=== PATIENT | male | born 1970 | race American Indian/Alaskan Native ===

== ENCOUNTER 2018-09-26 14:44 | Emergency (ER) | payer OTHER ==
[2018-09-26] MEDS ORDERED: Sodium Chloride 0.9% 10 ML Syringe FLUSH PRN (14:45)
[2018-09-26] MEDS ORDERED: Aspirin 81 MG Tab.Chew PO ONE (14:45)
[2018-09-26] MEDS ORDERED: Nitroglycerin 0.4 MG Tab.SL SL PRN (14:45)
--- NOTE | 2018-09-26 14:45 | EDM.PDOC ---
ED HPI GENERAL MEDICAL PROBLEM - General Chief Complaint: Chest Pain Stated Complaint: [facility] CHEST PAIN Time Seen by Provider: 09/26/18 14:45 Source of Information: Reports: Patient, EMS, Old Records, Provider (Dr. Lakhani) , RN, RN Notes Reviewed History Limitations: Reports: No Limitations - History of Present Illness INITIAL COMMENTS - FREE TEXT/NARRATIVE: Pt sent from [facility] by [facility] by Dr. Lakhani for evaluation of chest pain. Pt states he was seen in ER in 2017 for a similar pain and was diagnosed with GERD. Today he presented as a walk in to the clinic with c/o chest pain. He describes a sharp epigastric burning pain that radiates up the midline of the chest to into the throat. Pt denies SOB, palpitations, syncope, cough, or edema. Duration: Week(s): (3), Recurring Location: Reports: Chest, Abdomen Quality: Reports: Burning, Sharp Severity: Moderate Improves with: Reports: None Worsens with: Reports: None Associated Symptoms: Reports: No Other Symptoms - Related Data Allergies Allergy/AdvReac Type Severity Reaction Status Date / Time Penicillins Allergy Swelling Verified 05/29/15 00:25 Home Meds: Home Meds . [No Known Home Meds] 09/26/18 [History] Past Medical History - Past Health History Medical/Surgical History: Denies Medical/Surgical History Social & Family History - Family History Family Medical History: Noncontributory - Caffeine Use Caffeine Use: Reports: Coffee, Energy Drinks, Soda, Tea ED ROS GENERAL - Review of Systems Review Of Systems: ROS reveals no pertinent complaints other than HPI. ED EXAM, GENERAL - Physical Exam Exam: See Below Exam Limited By: No Limitations General Appearance: Alert, WD/WN, No Apparent Distress Throat/Mouth: Normal Inspection, Normal Lips, Normal Voice, No Airway Compromise Head: Atraumatic, Normocephalic Neck: Normal Inspection, Supple, Non-Tender, Full Range of Motion Respiratory/Chest: No Respiratory Distress, Lungs Clear, Normal Breath Sounds, No Accessory Muscle Use, Chest Non-Tender Cardiovascular: Regular Rate, Rhythm, No Edema GI/Abdominal: Normal Bowel Sounds, Soft, Non-Tender, No Distention, No Abnormal Bruit Back Exam: Normal Inspection Extremities: Normal Inspection, Normal Range of Motion, Non-Tender, Normal Capillary Refill, No Pedal Edema Neurological: Alert, Oriented, CN II-XII Intact, Normal Cognition, Normal Gait, No Motor/Sensory Deficits Psychiatric: Normal Affect, Normal Mood Skin Exam: Warm, Dry, Intact, Normal Color, No Rash EKG INTERPRETATION EKG Date: 09/26/18 Time: 15:28 Rhythm: Other (sinus rhythm) Rate (Beats/Min): 76 [place]: Normal P-Wave: Absent (probable left atrial enlargement) QRS: Other (baseline wander in Lead II and AVR.) ST-T: Normal QT: Normal Comparison: No Change Course - Vital Signs Last Recorded V/S: See RN entry for VS, reviewed by me. - Orders/Labs/Meds Orders: Active Orders 24 hr Category Date Time Status EKG 12 Lead [EKG Documentation Completion] [] STAT Care 09/26/18 14:45 Active Peripheral IV Care [] . DIRECTED Care 09/26/18 14:46 Active Nitroglycerin [Nitrostat] Med 09/26/18 14:45 Active 0.4 mg SL Q5M PRN Sodium Chloride 0.9% [Saline Flush] Med 09/26/18 14:45 Active 10 ml FLUSH ASDIRECTED PRN Peripheral IV Insertion Adult [OM.PC] Stat Oth 09/26/18 14:45 Ordered Medication Orders Nitroglycerin (Nitrostat) 0.4 mg SL Q5M PRN PRN Reason: Chest Pain Sodium Chloride (Saline Flush) 10 ml FLUSH ASDIRECTED PRN PRN Reason: Keep Vein Open Labs: Laboratory Tests 09/26/18 09/26/18 09/26/18 Range/Units 15:07 15:07 15:07 WBC 7.3 (5.0-10.0) 10^3/uL RBC 4.37 L (4.6-6.2) 10^6/uL Hgb 14.7 D (14.0-18.0) g/dL Hct 41.6 (40.0-54.0) % MCV 95.2 D (80-100) fL MCH 33.6 (27.0-34.0) pg MCHC 35.3 H (33.0-35.0) g/dL Plt Count 131 L (150-450) 10^3/uL Neut % (Auto) 55.6 (42.2-75.2) % Lymph % (Auto) 30.0 (20.5-50.1) % [place] % (Auto) 8.7 H (2-8) % Eos % (Auto) 4.9 H (1.0-3.0) % Baso % (Auto) 0.8 (0.0-1.0) % D-Dimer, Quantitative 290 (0-400) ng/mL Sodium 131 L (135-145) mmol/L Potassium 3.7 (3.6-5.0) mmol/L Chloride 99 L (101-111) mmol/L Carbon Dioxide 22.0 (21.0-31.0) mmol/L Anion Gap 13.7 BUN 13 (7-18) mg/dL Creatinine 0.8 (0.6-1.3) mg/dL Est Cr Clr Drug Dosing TNP Estimated GFR (MDRD) > 60 BUN/Creatinine Ratio 16.25 Glucose 133 H (74-105) mg/dL Calcium 9.6 (8.4-10.2) mg/dl Total Bilirubin 0.8 (0.2-1.0) mg/dL AST 49 H (10-42) IU/L ALT 51 (10-60) IU/L Alkaline Phosphatase 78 (42-121) IU/L Troponin I < 0.02 (0.00-0.02) ng/ml Total Protein 7.7 (6.7-8.2) g/dl Albumin 4.2 (3.2-5.5) g/dl Globulin 3.5 Albumin/Globulin Ratio 1.20 Lipase 52 H (22-51) U/L Ethyl Alcohol < 5 mg/dL Meds: Medications Generic Name Dose Route Start Last Admin Trade Name Freq PRN Reason Stop Dose Admin Nitroglycerin 0.4 mg 09/26/18 14:45 Nitrostat SL Q5M PRN Chest Pain Sodium Chloride 10 ml 09/26/18 14:45 Saline Flush FLUSH ASDIRECTED PRN Keep Vein Open Discontinued Medications Generic Name Dose Route Start Last Admin Trade Name Freq PRN Reason Stop Dose Admin Aspirin 324 mg 09/26/18 14:45 Aspirin PO 09/26/18 14:46 ONETIME ONE Pantoprazole Sodium 40 mg 09/26/18 15:05 Protonix Iv IVPUSH 09/26/18 15:06 ONETIME ONE Sucralfate 1 gm 09/26/18 15:05 Carafate PO 09/26/18 15:06 ONETIME ONE - Radiology Interpretation Free Text/Narrative:: CXR: no acute process. Departure - Departure Time of Disposition: 15:48 Disposition: Home, Self-Care 01 Condition: Good Clinical Impression: Non-cardiac chest pain, GERD with esophagitis Instructions: Esophagitis, Food Choices for Gastroesophageal Reflux Disease, Adult, [id number] Forms: ED Department Discharge Additional Instructions: Rx: Omeprazole 20mg Follow up in clinic next week for recheck. - My Orders Last 24 Hours: My Active Orders 09/26/18 14:45 EKG 12 Lead [EKG Documentation Completion] [RC] STAT Nitroglycerin [Nitrostat] 0.4 mg SL Q5M PRN Sodium Chloride 0.9% [Saline Flush] 10 ml FLUSH ASDIRECTED PRN Peripheral IV Insertion Adult [OM.PC] Stat 09/26/18 14:46 Peripheral IV Care [RC] . DIRECTED - Assessment/Plan Last 24 Hours: My Active Orders 09/26/18 14:45 EKG 12 Lead [EKG Documentation Completion] [RC] STAT Nitroglycerin [Nitrostat] 0.4 mg SL Q5M PRN Sodium Chloride 0.9% [Saline Flush] 10 ml FLUSH ASDIRECTED PRN Peripheral IV Insertion Adult [OM.PC] Stat 09/26/18 14:46 Peripheral IV Care [RC] . DIRECTED
[2018-09-26] MEDS ORDERED: Pantoprazole 40 MG Vial IVPUSH ONE (15:05)
[2018-09-26] MEDS ORDERED: Sucralfate 1 GM Tab PO ONE (15:05)
--- NOTE | 2018-09-26 15:35 | CR ---
Clinical history: 48-year-old male chest pain. "No rib fractures or acute pulmonary disease" reported on last exam August 2013. Interpretation: Upright AP portable chest film unremarkable. External monitor worker leads but normal cardiac silhouette without new cephalization of flow, signs of alveolar edema or dependent pleural fluid accumulation (effusion). Subtle peribronchial "cuffing" but no new focal lobar infiltrate or atelectasis. No lung mass or hilar lymphadenopathy.
[2018-09-26 15:36] LABS: ANION GAP 13.7; CHLORIDE,CL 99 mmol/L (101-111); SODIUM,NA 131 mmol/L (135-145)
[2018-09-26 16:12] VITALS: BP 151/84
== END 2018-09-26 16:20 | disposition home or self-care (01) ==
LOC: DL.ED 14:44
DX: K21.0 Gastro-esophageal reflux disease with esophagitis (principal); Z88.0 Allergy status to penicillin
CPT/HCPCS: 36415; 71045; 80053; 83690; 84484; 85025; 85379; 93005; 96374; 99284; A9270; C9113; G0480

== ENCOUNTER 2018-10-07 11:12 | Emergency (ER) | payer OTHER, MEDICAID ==
[2018-10-07 11:20] VITALS: BP 147/79
--- NOTE | 2018-10-07 11:58 | CR ---
Clinical history: 48-year-old male complaining of chest pain Interpretation: Negative exam. No acute new cardiopulmonary abnormality identified in the interval since 26 September 2018 or earlier 14 September 2013 films. Upright AP portable chest film confirms normal cardiac silhouette without cephalization of vascular flow, new signs of alveolar edema or dependent pleural fluid accumulation. No new lung mass, hilar lymphadenopathy or focal lobar pneumonia. No atelectasis/collapse. No pneumothorax.
[2018-10-07 12:02] LABS: ANION GAP 13.8; CHLORIDE,CL 95 mmol/L (101-111); SODIUM,NA 129 mmol/L (135-145)
--- NOTE | 2018-10-07 12:29 | EDM.PDOC ---
Scribed by Shari Rascon 10/07/18 [id number] for Mary Ann Velásquez NP ED HPI GENERAL MEDICAL PROBLEM - General Chief Complaint: Respiratory Problem Stated Complaint: CHEST HURTS,BAD COLD Time Seen by Provider: 10/07/18 11:23 Source of Information: Reports: Patient, RN, RN Notes Reviewed History Limitations: Reports: No Limitations - History of Present Illness INITIAL COMMENTS - FREE TEXT/NARRATIVE: Patient presents tp ER with complaint of chest pain, cold symptoms beginning a few days ago when out in the cold air. He took Advil this a.m. which did help. He has a runny nose, sinus congestion, fever, chills, diarrhea, non-productive cough, shortness of breath and chest pain. No nausea or vomiting. Onset: Gradual Duration: Getting Worse Location: Reports: Chest Quality: Reports: Ache Severity: Moderate Improves with: Reports: None Worsens with: Reports: None Associated Symptoms: Reports: No Other Symptoms Middle Chest Pain Score (Numeric/FACES): 10 - Related Data Allergies Allergy/AdvReac Type Severity Reaction Status Date / Time Penicillins Allergy Swelling Verified 10/07/18 11:20 Home Meds: Home Meds . [No Known Home Meds] 09/26/18 [History] Past Medical History - Past Health History Medical/Surgical History: Denies Medical/Surgical History Social & Family History - Family History Family Medical History: Noncontributory - Tobacco Use Smoking Status *Q: Former Smoker Used Tobacco, but Quit: Yes Month/Year Tobacco Last Used: 2018 - Caffeine Use Caffeine Use: Reports: Coffee, Energy Drinks, Soda, Tea - Recreational Drug Use Recreational Drug Use: No ED ROS GENERAL - Review of Systems Review Of Systems: ROS reveals no pertinent complaints other than HPI. ED EXAM, GENERAL - Physical Exam Exam: See Below Exam Limited By: No Limitations General Appearance: Alert, WD/WN, No Apparent Distress Eye Exam: Bilateral Eye: EOMI, Normal Inspection, PERRL Ears: Normal External Exam, Normal Canal, Hearing Grossly Normal, Normal TMs Nose: Other (nose deviated to the right) Throat/Mouth: Normal Inspection, Normal Lips, Normal Teeth, Normal Gums, Normal Oropharynx, Normal Voice, No Airway Compromise Head: Atraumatic, Normocephalic Respiratory/Chest: Lungs Clear, Decreased Breath Sounds Cardiovascular: Normal Peripheral Pulses, Regular Rate, Rhythm, No Edema, No Gallop, No JVD, No Murmur, No Rub GI/Abdominal: Normal Bowel Sounds, Soft, Non-Tender, No Organomegaly, No Distention, No Abnormal Bruit, No Mass (Male) Exam: Deferred Rectal (Males) Exam: Deferred Back Exam: Normal Inspection, Full Range of Motion, NT Extremities: Normal Inspection, Normal Range of Motion, Non-Tender, Normal Capillary Refill, No Pedal Edema Neurological: Alert, Oriented, CN II-XII Intact, Normal Cognition, Normal Gait, Normal Reflexes, No Motor/Sensory Deficits Psychiatric: Normal Affect, Normal Mood Skin Exam: Warm, Dry, Intact, Normal Color, No Rash Lymphatic: No Adenopathy EKG INTERPRETATION EKG Date: 10/07/18 Time: 11:31 Rhythm: Other (sinus rhythm) Rate (Beats/Min): 75 [place]: Normal P-Wave: Present QRS: Normal ST-T: Normal QT: Normal Comparison: No Change Course - Vital Signs Last Recorded V/S: Last Vital Signs Temp 98.5 F 10/07/18 11:18 Pulse 72 10/07/18 11:18 Resp 16 10/07/18 11:18 BP 147/79 H 10/07/18 11:18 Pulse Ox 99 10/07/18 11:18 - Orders/Labs/Meds Orders: Active Orders 24 hr Category Date Time Status EKG Documentation Completion [RC] STAT Care 10/07/18 11:29 Active Labs: Laboratory Tests 10/07/18 10/07/18 Range/Units 11:36 11:36 WBC 8.4 (5.0-10.0) 10^3/uL RBC 4.16 L (4.6-6.2) 10^6/uL Hgb 13.9 L (14.0-18.0) g/dL Hct 40.2 (40.0-54.0) % MCV 96.6 (80-100) fL MCH 33.4 (27.0-34.0) pg MCHC 34.6 (33.0-35.0) g/dL Plt Count 111 L (150-450) 10^3/uL Neut % (Auto) 70.3 (42.2-75.2) % Lymph % (Auto) 15.6 L (20.5-50.1) % [place] % (Auto) 10.8 H (2-8) % Eos % (Auto) 2.9 (1.0-3.0) % Baso % (Auto) 0.4 (0.0-1.0) % Sodium 129 L (135-145) mmol/L Potassium 3.8 (3.6-5.0) mmol/L Chloride 95 L (101-111) mmol/L Carbon Dioxide 24.0 (21.0-31.0) mmol/L Anion Gap 13.8 BUN 9 (7-18) mg/dL Creatinine 0.8 (0.6-1.3) mg/dL Est Cr Clr Drug Dosing 112.30 mL/min Estimated GFR (MDRD) > 60 BUN/Creatinine Ratio 11.25 Glucose 209 H (74-105) mg/dL Calcium 9.0 (8.4-10.2) mg/dl Total Bilirubin 0.9 (0.2-1.0) mg/dL AST 38 (10-42) IU/L ALT 43 (10-60) IU/L Alkaline Phosphatase 70 (42-121) IU/L Troponin I < 0.02 (0.00-0.02) ng/ml Total Protein 7.5 (6.7-8.2) g/dl Albumin 3.8 (3.2-5.5) g/dl Globulin 3.7 Albumin/Globulin Ratio 1.03 - Radiology Interpretation Free Text/Narrative:: Chest xray: No acute findings See rad report Departure - Departure Time of Disposition: 12:27 Disposition: Home, Self-Care 01 Condition: Fair Clinical Impression: Bronchitis - Discharge Information *PRESCRIPTION DRUG MONITORING PROGRAM REVIEWED*: No *COPY OF PRESCRIPTION DRUG MONITORING REPORT IN PATIENT JETHRO: No Instructions: Acute Bronchitis, Adult, [id number] Forms: ED Department Discharge Additional Instructions: RX: Prednisone, albuterol inhaler Follow up with your primary care facility May use Tylenol and/or Ibuprofen as directed for pain/fever - My Orders Last 24 Hours: My Active Orders 10/07/18 11:29 EKG Documentation Completion [RC] STAT - Assessment/Plan Last 24 Hours: My Active Orders 10/07/18 11:29 EKG Documentation Completion [RC] STAT I have read and agree with the documentation that has been completed regarding this visit. By signing this record, I attest that the documentation was completed in my physical presence and is an accurate record of the encounter.
== END 2018-10-07 12:40 | disposition home or self-care (01) ==
LOC: DL.ED 11:12
DX: J40 Bronchitis, not specified as acute or chronic (principal); Z88.0 Allergy status to penicillin; Z87.891 Personal history of nicotine dependence
CPT/HCPCS: 36415; 71045; 80053; 84484; 85025; 93005; 99285

== ENCOUNTER 2018-10-09 09:26 | Observation (INO) | payer MEDICAID, OTHER ==
--- NOTE | 2018-10-09 10:03 | CR ---
Clinical history: 48-year-old male complaining of shortness of breath. Interpretation: No acute new cardiopulmonary abnormality since recent film 07 October 2018 or earlier chest x-ray 26 September 2018. Prominent costochondral cartilage. External shelter monitor leads. Left-sided aortic arch. Normal cardiac silhouette without cephalization of vascular flow, alveolar edema or dependent pleural effusion. No lung mass, hilar lymphadenopathy or new focal lobar consolidation (infiltrate/atelectasis). No pneumothorax. CONCLUSION: No acute or new cardiopulmonary abnormality.
[2018-10-09 10:07] LABS: ANION GAP 17.5; CHLORIDE,CL 94 mmol/L (101-111); SODIUM,NA 127 mmol/L (135-145)
[2018-10-09] MEDS ORDERED: Sodium Chloride 0.9% 1,000 ML IV SCH (10:30)
--- NOTE | 2018-10-09 10:37 | EDM.PDOC ---
ED HPI GENERAL MEDICAL PROBLEM - General Chief Complaint: Respiratory Problem Stated Complaint: SOB-AMBULANCE Time Seen by Provider: 10/09/18 09:45 Source of Information: Reports: Patient History Limitations: Reports: No Limitations - History of Present Illness INITIAL COMMENTS - FREE TEXT/NARRATIVE: This 48 yo male patient reports to the ED by [facility] due to increased shortness of breath and chest tightness. The patient was seen in the ED 2 days ago with similar symptoms, diagnosed with bronchitis, given scripts for prednisone and albuterol. The patient reports he has been taking the prednisone, but did not fill the albuterol. Onset: Gradual Duration: Day(s):, Constant, Getting Worse Location: Reports: Chest Quality: Reports: Other Severity: Moderate Improves with: Reports: None Worsens with: Reports: None Associated Symptoms: Reports: Shortness of Breath - Related Data Allergies Allergy/AdvReac Type Severity Reaction Status Date / Time Penicillins Allergy Swelling Verified 10/07/18 11:20 Home Meds: Home Meds predniSONE [Prednisone] 60 mg PO DAILY 10/09/18 [History] Past Medical History - Past Health History Medical/Surgical History: Denies Medical/Surgical History Social & Family History - Family History Family Medical History: Noncontributory - Tobacco Use Smoking Status *Q: Former Smoker Used Tobacco, but Quit: Yes Month/Year Tobacco Last Used: 2017 - Caffeine Use Caffeine Use: Reports: None - Recreational Drug Use Recreational Drug Use: No ED ROS GENERAL - Review of Systems Review Of Systems: ROS reveals no pertinent complaints other than HPI. ED EXAM, GENERAL - Physical Exam Exam: See Below Exam Limited By: No Limitations General Appearance: Alert, WD/WN, Mild Distress Eye Exam: Bilateral Eye: EOMI, Normal Inspection, PERRL Ears: Normal External Exam, Normal Canal, Hearing Grossly Normal, Normal TMs Nose: Normal Inspection, Normal Mucosa, No Blood Throat/Mouth: Normal Inspection, Normal Lips, Normal Teeth, Normal Gums, Normal Oropharynx, Normal Voice, No Airway Compromise Head: Atraumatic, Normocephalic Neck: Normal Inspection, Supple, Non-Tender, Full Range of Motion Respiratory/Chest: No Respiratory Distress, Lungs Clear, Normal Breath Sounds, No Accessory Muscle Use, Chest Non-Tender Cardiovascular: Normal Peripheral Pulses, Regular Rate, Rhythm, No Edema, No Gallop, No JVD, No Murmur, No Rub GI/Abdominal: Normal Bowel Sounds, Soft, Non-Tender, No Organomegaly, No Distention, No Abnormal Bruit, No Mass (Male) Exam: Deferred Rectal (Males) Exam: Deferred Back Exam: Normal Inspection, Full Range of Motion, NT Extremities: Normal Inspection, Normal Range of Motion, Non-Tender, Normal Capillary Refill, No Pedal Edema Neurological: Alert, Oriented, CN II-XII Intact, Normal Cognition, Normal Gait, Normal Reflexes, No Motor/Sensory Deficits Psychiatric: Normal Affect, Normal Mood Skin Exam: Warm, Dry, Intact, Normal Color, No Rash Lymphatic: No Adenopathy Course - Vital Signs Last Recorded V/S: Last Vital Signs Temp 37.4 C 10/09/18 09:31 Pulse 81 10/09/18 09:31 Resp 14 10/09/18 09:31 BP 139/85 10/09/18 09:31 Pulse Ox 96 10/09/18 09:31 - Orders/Labs/Meds Orders: Active Orders 24 hr Category Date Time Status EKG Documentation Completion [RC] URGENT Care 10/09/18 09:24 Active CULTURE BLOOD [BC] Stat Lab 10/09/18 09:37 Received Sodium Chloride 0.9% [Normal Saline] 1,000 ml Med 10/09/18 10:30 Active IV ASDIRECTED Medication Orders Sodium Chloride (Normal Saline) 1,000 mls @ 100 mls/hr IV ASDIRECTED TERESA Labs: Laboratory Tests 10/09/18 10/09/18 10/09/18 Range/Units 09:37 09:37 09:37 WBC 7.5 (5.0-10.0) 10^3/uL RBC 4.42 L (4.6-6.2) 10^6/uL Hgb 14.5 (14.0-18.0) g/dL Hct 41.6 (40.0-54.0) % MCV 94.1 (80-100) fL MCH 32.8 (27.0-34.0) pg MCHC 34.9 (33.0-35.0) g/dL Plt Count 126 L (150-450) 10^3/uL Neut % (Auto) 67.4 (42.2-75.2) % Lymph % (Auto) 23.6 (20.5-50.1) % [place] % (Auto) 7.2 (2-8) % Eos % (Auto) 1.5 (1.0-3.0) % Baso % (Auto) 0.3 (0.0-1.0) % Sodium 127 L (135-145) mmol/L Potassium 3.5 L (3.6-5.0) mmol/L Chloride 94 L (101-111) mmol/L Carbon Dioxide 19.0 L (21.0-31.0) mmol/L Anion Gap 17.5 BUN 14 (7-18) mg/dL Creatinine 0.8 (0.6-1.3) mg/dL Est Cr Clr Drug Dosing 112.30 mL/min Estimated GFR (MDRD) > 60 BUN/Creatinine Ratio 17.50 Glucose 205 H (74-105) mg/dL Lactic Acid 1.8 (0.5-2.2) mmol/L Calcium 9.1 (8.4-10.2) mg/dl Total Bilirubin 1.1 H (0.2-1.0) mg/dL AST 58 H (10-42) IU/L ALT 49 (10-60) IU/L Alkaline Phosphatase 63 (42-121) IU/L Troponin I < 0.02 (0.00-0.02) ng/ml Total Protein 7.9 (6.7-8.2) g/dl Albumin 4.1 (3.2-5.5) g/dl Globulin 3.8 Albumin/Globulin Ratio 1.08 Meds: Medications Generic Name Dose Route Start Last Admin Trade Name Freq PRN Reason Stop Dose Admin Sodium Chloride 1,000 mls @ 100 mls/hr 10/09/18 10:30 Normal Saline IV ASDIRECTED [facility] Departure - Departure Time of Disposition: 10:35 Disposition: Admitted As Inpatient 66 Condition: Fair Clinical Impression: Bronchitis, Hyponatremia, Shortness of breath - Discharge Information *PRESCRIPTION DRUG MONITORING PROGRAM REVIEWED*: Not Applicable *COPY OF PRESCRIPTION DRUG MONITORING REPORT IN PATIENT JETHRO: Not Applicable Care Plan Goals: Discussed the history, examination and lab results with Dr. Mckeon. Dr. Mckeon accepted the patient for continued evaluation and further management as an inpatient at [facility] in [place]. - My Orders Last 24 Hours: My Active Orders 10/09/18 09:24 EKG Documentation Completion [RC] URGENT 10/09/18 09:37 CULTURE BLOOD [BC] Stat 10/09/18 10:30 Sodium Chloride 0.9% [Normal Saline] 1,000 ml IV ASDIRECTED - Assessment/Plan Last 24 Hours: My Active Orders 10/09/18 09:24 EKG Documentation Completion [RC] URGENT 10/09/18 09:37 CULTURE BLOOD [BC] Stat 10/09/18 10:30 Sodium Chloride 0.9% [Normal Saline] 1,000 ml IV ASDIRECTED
[2018-10-09] MEDS ORDERED: Docusate Sodium 100 MG Cap PO PRN (11:55)
[2018-10-09] MEDS ORDERED: Magnesium Hydroxide 400 MG/5 ML Susp 30 ML Cup PO PRN (11:55)
[2018-10-09] MEDS ORDERED: Ondansetron 4 MG Tab.DIS PO PRN (11:55)
--- NOTE | 2018-10-09 12:47 | HP ---
CHIEF COMPLAINT: Increasing shortness of breath. HISTORY OF PRESENTING ILLNESS: Mr. Kyle Staton is a 48-year-old male with medical history significant for alcohol use and tobacco use in the past. 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 He was in the ER 2 days back with similar complaint and was diagnosed with acute bronchitis and given oral prednisone, but this has not helped his symptoms, and he has failed outpatient treatment requiring admission to the hospital. At this time, the patient claims that he has been sick for the last 3 to 4 days with increasing shortness of breath and progressively getting worse. He grades the shortness of breath as 8 to 10/10 in intensity, aggravated on exertion, relieved with rest, associated with chest tightness on exertion, nonradiating, not associated with nausea or vomiting. He complains of having some loose stools earlier today, denied any similar complaints in the past. Also, he has had cough with sputum which is greenish-yellow in color. Denied any fevers but complains of having chills and feeling cold. Denies any sick contacts. No recent travel. Denies any abdominal pain except for discomfort at times. The patient denied any history of chest pains on exertion. No history of dyspnea on exertion. No history of orthopnea or paroxysmal nocturnal dyspnea. The patient denied any history of hematemesis, hematochezia, or melenic stools. Normal bowel and bladder habits, otherwise. REVIEW OF SYSTEMS: A complete review of systems including skin; ear, nose, and throat; cardiovascular system; respiratory system; gastrointestinal system; genitourinary system; hematology; oncology; neurology; allergy; immunology; endocrinology; constitutional were all evaluated and were negative except for the above-said notes. PAST MEDICAL HISTORY: Significant for alcohol-induced pancreatitis, alcohol use, tobacco use, and bronchitis in the past. PAST SURGICAL HISTORY: None as per the patient. FAMILY HISTORY: Significant for diabetes in his mother and sister. ALLERGIES: Allergic history: The patient noted to have allergies to penicillin which causes swelling of the face. MEDICATIONS: Home medications include prednisone, recently prescribed. PHYSICAL EXAMINATION: Vital Signs: Temperature of 99.4, pulse of 82, blood pressure 142/87, respiratory rate of 20, and saturating at 99% on room air. General Appearance: The patient is well oriented to time, place, and person. Follows commands spontaneously. Cardiovascular System: S1 and S2 heard with normal intensity. No gallops. Respiratory System: Clear to auscultation bilaterally except for mild crepitations at the base. No wheeze. Abdomen: Soft. Bowel sounds positive. Nontender. No rigidity. No guarding. No rebound tenderness. Extremities: No edema in the bilateral lower extremities. Neurology: No gross focal neurological deficits. LABORATORY DATA: 1. WBC 7.5, hemoglobin 14.5, hematocrit 41.6, and platelet count 126. 2. Sodium 127, potassium 3.5, chloride 94, bicarb 19, BUN 14, creatinine 0.8, glucose 205, AST 58, and total bilirubin 1.1. ASSESSMENT: 1. Acute bronchitis. 2. Shortness of breath. 3. Hyponatremia. 4. Hypokalemia. 5. Metabolic acidosis. PLAN: 1. Acute bronchitis. The patient will be admitted to the hospital. We will have him on IV antibiotics. He is complaining of cough with sputum which is greenish-yellow in color. The patient had a chest x-ray earlier. No acute cardiopulmonary abnormality noted on the chest x-ray. The patient could have underlying bronchitis leading to the shortness of breath. We will have him on oral prednisone and also IV antibiotics with Levaquin. He is allergic to penicillin. We will obtain sputum cultures. We will have him on incentive spirometer and flutter valve. 2. Hyponatremia. The patient noted to have low sodium. Exact etiology is not clear. We will have him on IV normal saline. Recheck a basic metabolic panel in the a.m. 3. Hypokalemia. We will replace with oral potassium chloride. 4. Metabolic acidosis. This could be resulting from acute bronchitis. We will continue with IV normal saline for now. He is noted to have elevated blood sugars. The patient denied any history of diabetes in the past. 5. Hyperglycemia. This could be steroid-induced. We will get a hemoglobin A1c. He denied any diabetes in the past. We will use supplemental scale insulin if needed for additional coverage of his blood glucose. 6. DVT prophylaxis. We will have him on Lovenox for DVT prophylaxis. 7. Code status. The patient wants to be full code. 8. Discussed with Ehsan Jones PA-C, ER staff, regarding the plan of care. Reviewed the labs and medications. Reviewed the old charts. [facility] /[id number]
[2018-10-09] MEDS: NS + KCl 20mEq/L 1,000 ML IV SCH (13:06)
[2018-10-09] MEDS: Levofloxacin/Dextrose 5%-Water 500 MG in Premix Bag 1 BAG IV SCH (13:06)
[2018-10-09] MEDS: Albuterol/Ipratropium 3.0-0.5 MG/3 ML Neb Soln NEB SCH ×2 (14:57→20:43)
[2018-10-09] MEDS: Potassium Chloride 10 MEQ Tab.ER PO SCH (17:49)
[2018-10-09] MEDS: Acetaminophen 325 MG Tab PO PRN (21:21)
[2018-10-10] MEDS: NS + KCl 20mEq/L 1,000 ML IV SCH (02:56)
[2018-10-10 07:04] LABS: ANION GAP 16.5; CHLORIDE,CL 101 mmol/L (101-111); SODIUM,NA 135 mmol/L (135-145)
[2018-10-10] MEDS: Albuterol/Ipratropium 3.0-0.5 MG/3 ML Neb Soln NEB SCH ×3 (07:16→20:40)
[2018-10-10] MEDS: predniSONE 20 MG Tab PO SCH (08:41)
[2018-10-10] MEDS: Potassium Chloride 10 MEQ Tab.ER PO SCH ×2 (08:41→17:18)
[2018-10-10] MEDS: Enoxaparin 40 MG/0.4 ML Syringe SUBCUT SCH ×2 (08:41→09:23)
--- NOTE | 2018-10-10 12:52 | PN ---
DATE: 10/10/2018 SUBJECTIVE: Mr. Kyle Staton is a 48-year-old male with a medical history significant for chronic alcohol use and tobacco use, but the patient claims that he quit drinking and smoking, admitted with complaints of increasing shortness of breath and noted to have acute bronchitis and acute hyponatremia, requiring admission to the hospital. For the last 24 hours, the patient required IV fluids along with potassium which improved his sodium. He continues to have mild shortness of breath, aggravated on exertion, relieved with rest, not associated with any nausea or vomiting. Denies any chest pain. No abdominal pain. No diarrhea. REVIEW OF SYSTEMS: Cardiovascular, respiratory, gastrointestinal, neurology, constitutional were all evaluated. PHYSICAL EXAMINATION: Vital Signs: Temperature of 98.9, pulse of 116, blood pressure 154/84, respiratory rate of 20, and saturating at 100%. General Appearance: The patient is well oriented to time, place, and person. Follows commands spontaneously. Cardiovascular System: S1 and S2 heard with normal intensity. No gallops. Respiratory System: Clear to auscultation bilaterally. No wheeze. No crepitations. Abdomen: Soft. Bowel sounds positive. Nontender. No rigidity. Extremities: No edema in the bilateral lower extremities. MEDICATIONS: Reviewed. Continue with: 1. Tylenol 650 every 4 hours as needed for pain. 2. DuoNeb 3 mL nebulizer 3 times a day. 3. Lovenox 40 mg daily. 4. Levaquin 500 mg daily. 5. Prednisone 20 mg daily. 6. Potassium chloride 20 mEq twice a day. LABORATORY DATA: 1. WBC 10, hemoglobin 14.6, hematocrit 41.8, and platelet count 130. 2. Sodium 135, potassium 3.5, chloride 101, bicarb 21, BUN 15, creatinine 0.7, and glucose 131. ASSESSMENT: 1. Acute bronchitis. 2. Hyponatremia. 3. Hypokalemia. 4. Chronic history of alcohol use and tobacco use. 5. Metabolic acidosis, resolved. PLAN: 1. Acute bronchitis. The patient was admitted with increasing shortness of breath and has failed outpatient treatment. He was started on DuoNeb and also IV antibiotics and prednisone which improved his symptoms. He continues to have mild shortness of breath on exertion. We will closely follow the patient. Continue with current treatment plan. 2. Hyponatremia, improved. The patient was noted to have sodium of 127 at the time of admission. His sodium is 135 today, back to normal. 3. Hypokalemia, replaced with IV and oral potassium chloride. Continue with oral potassium. Recheck a basic metabolic panel in the a.m. 4. Hyperglycemia. The patient noted to have elevated blood sugars. This could be resulting from steroid use. We will order for a hemoglobin A1c. The patient denied any history of diabetes in the past. 5. DVT prophylaxis. Continue with Lovenox for DVT prophylaxis. [facility] /[id number]
[2018-10-10] MEDS: Levofloxacin/Dextrose 5%-Water 500 MG in Premix Bag 1 BAG IV SCH (14:32)
[2018-10-10] MEDS: Acetaminophen 325 MG Tab PO PRN (19:46)
[2018-10-11] MEDS: Albuterol/Ipratropium 3.0-0.5 MG/3 ML Neb Soln NEB SCH (07:17)
[2018-10-11] MEDS: Potassium Chloride 10 MEQ Tab.ER PO SCH (08:22)
[2018-10-11] MEDS: predniSONE 20 MG Tab PO SCH (08:23)
[2018-10-11] MEDS: Enoxaparin 40 MG/0.4 ML Syringe SUBCUT SCH (08:23)
[2018-10-11 11:56] LABS: ANION GAP 16.1; CHLORIDE,CL 95 mmol/L (101-111); SODIUM,NA 129 mmol/L (135-145)
[2018-10-11 12:20] VITALS: BP 138/78
[2018-10-11] MEDS: Levofloxacin/Dextrose 5%-Water 500 MG in Premix Bag 1 BAG IV SCH (12:57)
--- NOTE | 2018-10-11 13:45 | PCM.DCSUM1 ---
Discharge Summary - Hospital Course Free Text/Narrative:: Mr. Staton is a 48 y.o male who presented with increasing shortness of breath and was admitted for acute bronchitis. He was started on steroids and levaquin. He was found to have hyperglycemia. This was likely 2/2 steroids. He was found to have hypokalemia. He was given IV and PO potassium chloride. Patient improved and was saturating well on room air. He was discharged home with ciprofloxacin to complete total of 5 days of antibiotics. He is to follow up with his PCP and have his renal function checked to monitor his K, Na, and blood glucose level. Diagnosis: Stroke: No - Discharge Data Discharge Date: 10/11/18 Discharge Disposition: Home, Self-Care 01 Condition: Good - Patient Instructions Diet: Heart Healthy Diet Driving: January Drive Today Showering/Bathing: January Shower - Discharge Plan *PRESCRIPTION DRUG MONITORING PROGRAM REVIEWED*: Not Applicable *COPY OF PRESCRIPTION DRUG MONITORING REPORT IN PATIENT JETHRO: Not Applicable Oxygen Therapy Mode: Room Air Forms: ED Department Discharge - Discharge Summary/Plan Comment DC Time >30 min.: Yes - General Info Date of Service: 10/11/18 Admission Dx/Problem (Free Text: acute bronchitis - Review of Systems General: Reports: No Symptoms HEENT: Reports: No Symptoms Pulmonary: Reports: Cough Cardiovascular: Reports: No Symptoms Gastrointestinal: Reports: No Symptoms Genitourinary: Reports: No Symptoms Musculoskeletal: Reports: No Symptoms Skin: Reports: No Symptoms Neurological: Reports: No Symptoms Psychiatric: Reports: No Symptoms - Patient Data Vitals - Most Recent: Last Vital Signs Temp 98.7 F 10/11/18 12:18 Pulse 97 10/11/18 12:18 Resp 20 10/11/18 12:18 BP 138/78 10/11/18 12:18 Pulse Ox 100 10/11/18 12:18 Weight - Most Recent: 153 lb 6.4 oz I&O - Last 24 hours: Intake & Output 10/10/18 10/11/18 10/11/18 22:59 06:59 14:59 Intake Total 1240 740 Balance 1240 740 Lab Results - Last 24 hrs: Laboratory Results - last 24 hr 10/11/18 Range/Units 11:10 Sodium 129 L (135-145) mmol/L Potassium 4.1 (3.6-5.0) mmol/L Chloride 95 L (101-111) mmol/L Carbon Dioxide 22.0 (21.0-31.0) mmol/L Anion Gap 16.1 BUN 15 (7-18) mg/dL Creatinine 0.7 (0.6-1.3) mg/dL Est Cr Clr Drug Dosing 127.01 mL/min Estimated GFR (MDRD) > 60 Glucose 288 H (74-105) mg/dL Calcium 9.2 (8.4-10.2) mg/dl TABBY Results - Last 24 hrs: Microbiology 10/09/18 09:37 Aerobic Blood Culture - Preliminary Blood NO GROWTH AFTER 2 DAYS Anaerobic Blood Culture - Preliminary NO GROWTH AFTER 2 DAYS Med Orders - Current: Current Medications Acetaminophen (Tylenol) 650 mg PO Q4H PRN PRN Reason: Pain (Mild 1-3)/fever Last Admin: 10/10/18 19:46 Dose: 650 mg Albuterol/Ipratropium (Duoneb 3.0-0.5 Mg/3 Ml) 3 ml NEB TIDRT [facility] Last Admin: 10/11/18 07:17 Dose: 3 ml Docusate Sodium (Colace) 100 mg PO BID PRN PRN Reason: Constipation Enoxaparin Sodium (Lovenox) 40 mg SUBCUT DAILY [facility] Last Admin: 10/11/18 08:23 Dose: Not Given Levofloxacin/Dextrose 500 mg/ (Premix) 100 mls @ 100 mls/hr IV Q24H [facility] Last Admin: 10/11/18 12:57 Dose: 100 mls/hr Magnesium Hydroxide (Milk Of Magnesia) 30 ml PO Q12H PRN PRN Reason: Constipation Ondansetron HCl (Zofran Odt) 4 mg PO Q4H PRN PRN Reason: nausea, able to take PO Potassium Chloride (Klor-Con 10) 20 meq PO BIDMEALS [facility] Last Admin: 10/11/18 08:22 Dose: 20 meq Prednisone (Prednisone) 20 mg PO WITHBREAKFAST [facility] Last Admin: 10/11/18 08:23 Dose: 20 mg Discontinued Medications Sodium Chloride (Normal Saline) 1,000 mls @ 100 mls/hr IV ASDIRECTED [facility] Last Admin: 10/09/18 10:33 Dose: 100 mls/hr Potassium Chloride/Sodium Chloride (Normal Saline With 20 Meq Kcl) 1,000 mls @ 75 mls/hr IV ASDIRECTED [facility] Last Infusion: 10/10/18 10:29 Dose: 75 mls/hr - Exam General: Reports: Alert, Oriented HEENT: Reports: Pupils Equal, EOMI, Mucous Membr. Moist/[place] Neck: Reports: Supple Lungs: Reports: Clear to Auscultation, Normal Respiratory Effort Cardiovascular: Reports: Regular Rate, Regular Rhythm GI/Abdominal Exam: Normal Bowel Sounds, No Distention Back Exam: Reports: Other Extremities: Normal Inspection, Normal Range of Motion Skin: Reports: Warm, Dry, Intact Neurological: Reports: No New Focal Deficit Psy/Mental Status: Reports: Alert, Normal Affect, Normal Mood
== END 2018-10-11 15:00 | disposition home or self-care (01) ==
LOC: DL.ED 09:26 → DL.MS 10:52 → UNDOADMOB 10:52 → INTOOBSV 10:52 → DL.MS 11:55
PROVIDERS: ADMIT Internal Medicine; ATTEND Internal Medicine
DX: J20.9 Acute bronchitis, unspecified (principal); R73.9 Hyperglycemia, unspecified; E87.6 Hypokalemia; E87.2 Acidosis; E87.1 Hypo-osmolality and hyponatremia; Z87.891 Personal history of nicotine dependence; Z79.899 Other long term (current) drug therapy
CPT/HCPCS: 36415; 71046; 80048; 80053; 83605; 83735; 84484; 85025; 85027; 87040; 87070; 87205; 93005; 94010; 94640; 94667; 96361; 96365; 96366; 96368; 99284; A9270; G0378; J1956; J3480; J7030; J1650; J7620-GY

== ENCOUNTER 2019-02-23 11:35 | Emergency (ER) | payer MEDICAID ==
[~2019-02-23 11:35] MED LIST: GI Cocktail Oral Solution 30 ML PO ONE
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
[2019-02-23 11:56] LABS: ANION GAP 18.5; CHLORIDE,CL 94 mmol/L (101-111); SODIUM,NA 126 mmol/L (135-145)
[2019-02-23 12:10] VITALS: BP 154/88
[2019-02-23] MEDS ORDERED: LORazepam 2 MG/ML Syringe IVPUSH ONE (12:28)
== END 2019-02-23 13:02 | disposition home or self-care (01) ==
LOC: DL.ED 11:35
DX: J40 Bronchitis, not specified as acute or chronic (principal); F41.9 Anxiety disorder, unspecified; Z88.0 Allergy status to penicillin
CPT/HCPCS: 36415; 71045; 80053; 84484; 85025; 85379; 93005; 96374; 99285; A9270; G0480; J2060

== ENCOUNTER 2019-02-26 08:14 | Emergency (ER) | payer MEDICAID ==
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
[2019-02-26 08:22] VITALS: BP 134/86
[2019-02-26] MEDS ORDERED: Sodium Chloride 0.9% 10 ML Syringe FLUSH PRN (08:31)
[2019-02-26] MEDS ORDERED: Albuterol/Ipratropium 3.0-0.5 MG/3 ML Neb Soln NEB ONE (08:47)
[2019-02-26] MEDS ORDERED: Codeine/Promethazine 10-6.25 MG/5 ML Syrup 5 ML UD Cup PO ONE (08:47)
[2019-02-26] MEDS ORDERED: Sodium Chloride 0.9% 1,000 ML IV ONE (08:48)
[2019-02-26] MEDS ORDERED: Ketorolac 30 MG/ML SDV IVPUSH ONE (08:48)
[2019-02-26 09:05] LABS: ANION GAP 16.9; CHLORIDE,CL 99 mmol/L (101-111); SODIUM,NA 131 mmol/L (135-145)
[2019-02-26] MEDS ORDERED: Albuterol 6.7 GM Inhaler INH ONE (10:15)
== END 2019-02-26 10:42 | disposition home or self-care (01) ==
LOC: DL.ED 08:14
DX: J40 Bronchitis, not specified as acute or chronic (principal); R10.13 Epigastric pain; M54.5 Low back pain; K21.9 Gastro-esophageal reflux disease without esophagitis; E11.9 Type 2 diabetes mellitus without complications; Z79.84 Long term (current) use of oral hypoglycemic drugs; Z79.899 Other long term (current) drug therapy
CPT/HCPCS: 36415; 71046; 74176; 80053; 80305; 81001; 82009; 82150; 83690; 84484; 85025; 93005; 94640; 96365; 96375; 99285; A9270; J1885; J7030; J7620-GY

== ENCOUNTER 2019-02-28 18:05 | Emergency (ER) | payer MEDICAID ==
[2019-02-28 18:51] VITALS: BP 158/105; PULSE 95
[2019-02-28] MEDS ORDERED: Famotidine 20 MG/2 ML SDV IVPUSH ONE (19:44)
[2019-02-28] MEDS ORDERED: Sodium Chloride 0.9% 1,000 ML IV ONE (19:44)
[2019-02-28] MEDS ORDERED: Ondansetron 4 MG/2 ML SDV IV ONE (19:44)
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
[2019-02-28 20:10] LABS: ANION GAP 15.5; CHLORIDE,CL 94 mmol/L (101-111); SODIUM,NA 128 mmol/L (135-145)
== END 2019-02-28 21:25 | disposition home or self-care (01) ==
LOC: DL.ED 18:05
DX: K29.70 Gastritis, unspecified, without bleeding (principal); E86.0 Dehydration; E11.65 Type 2 diabetes mellitus with hyperglycemia; K21.9 Gastro-esophageal reflux disease without esophagitis; Z87.891 Personal history of nicotine dependence; Z79.84 Long term (current) use of oral hypoglycemic drugs; Z79.899 Other long term (current) drug therapy; Z88.0 Allergy status to penicillin
CPT/HCPCS: 36415; 80053; 81001; 82009; 82962; 83605; 85025; 96361; 96374; 96375; 99283; J2405; J3490; J7030

== ENCOUNTER 2019-05-13 21:59 | Emergency (ER) | payer MEDICAID ==
[2019-05-13] MEDS ORDERED: Nitroglycerin 0.4 MG Tab.SL SL ONE (22:04)
[2019-05-13] MEDS ORDERED: Diltiazem 25 MG/5 ML SDV IVPUSH ONE (22:04)
[2019-05-13] MEDS ORDERED: Sodium Chloride 0.9% 1,000 ML IV ONE (22:04)
[2019-05-13] MEDS ORDERED: Heparin Sodium 5,000 Units/ML Vial IVPUSH ONE (22:21)
[2019-05-13] MEDS ORDERED: Heparin Sodium/0.45% NaCl 500 ML ONE (22:27)
[2019-05-13 22:28] LABS: ANION GAP 13.2; CHLORIDE,CL 106 mmol/L (101-111); SODIUM,NA 140 mmol/L (135-145)
[2019-05-13] MEDS ORDERED: Heparin Sodium/0.45% NaCl 25,000 UNITS/500 ML BAG IV SCH (22:30)
[2019-05-13] MEDS: Potassium Chloride 100 ML ONE ×2 (22:39→22:42)
[2019-05-13] MEDS: Potassium Chloride 10 MEQ in Premix Bag 1 BAG IV ONE ×2 (22:39→22:41)
[2019-05-13 22:42] VITALS: BP 84/66
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
[2019-05-13] MEDS ORDERED: Metoclopramide 10 MG/2 ML SDV IVPUSH ONE (22:53)
[2019-05-13] MEDS ORDERED: Metoclopramide 10 MG/2 ML SDV ONE (22:54)
[2019-05-13] MEDS ORDERED: Furosemide 40 MG/4 ML VIAL ONE (23:16)
[2019-05-13] MEDS ORDERED: Furosemide 40 MG/4 ML VIAL IVPUSH ONE (23:20)
[2019-05-14] MEDS ORDERED: Amiodarone 150 MG/3 ML SDV ONE (00:26)
[2019-05-14 08:23] LABS: O2 DELIVERY DEVICE VENTILATOR
[2019-05-14 08:25] LABS: BICARBONATE,ARTERIAL 16.8 mmol/L (22-26); O2 SATURATION ARTERIAL 74 % (95-100); PCO2 ARTERIAL 86 mmHg (35-45); PO2 ARTERIAL 65 mmHg (70-100)
[2019-05-14 08:26] LABS: BASE EXCESS ARTERIAL -19 mmol/L ((-2)-(+3))
== END 2019-05-14 00:05 ==
LOC: DL.ED 21:59
DX: I21.4 Non-ST elevation (NSTEMI) myocardial infarction (principal); R06.03 Acute respiratory distress; I95.9 Hypotension, unspecified; E11.65 Type 2 diabetes mellitus with hyperglycemia; E87.6 Hypokalemia; K21.9 Gastro-esophageal reflux disease without esophagitis; J45.909 Unspecified asthma, uncomplicated; Z88.0 Allergy status to penicillin; Z79.899 Other long term (current) drug therapy; Z79.84 Long term (current) use of oral hypoglycemic drugs; Z77.22 Contact with and (suspected) exposure to environmental tobacco smoke (acute) (chronic)
CPT/HCPCS: 36415; 36600; 71045; 80053; 81001; 82553; 82803; 82962; 83880; 84484; 85025; 85379; 93005; 96365; 96366; 96368; 96375; 99291; J1644; J1940; J2765; J3480; J3490; J7030

== ENCOUNTER 2020-01-01 17:16 | Emergency (ER) | payer MEDICAID ==
[2020-01-01] MEDS ORDERED: Ondansetron 4 MG Tab.DIS PO ONE (17:17)
[2020-01-01] MEDS ORDERED: Sodium Chloride 0.9% 1,000 ML IV ONE (17:30)
[2020-01-01] MEDS ORDERED: Ondansetron 4 MG/2 ML SDV IVPUSH ONE (17:30)
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
[2020-01-01 18:08] LABS: CHLORIDE,CL 87 mmol/L (98-107); SODIUM,NA 124 mmol/L (136-145)
[2020-01-01] MEDS ORDERED: Acetaminophen 325 MG Tab PO ONE (19:38)
[2020-01-01] MEDS: Ondansetron 4 MG Tab.DIS ONE ×2 (19:51→19:53)
[2020-01-01 19:58] VITALS: BP 124/68; PULSE 78
== END 2020-01-01 19:55 | disposition home or self-care (01) ==
LOC: DL.ED 17:16
DX: K29.00 Acute gastritis without bleeding (principal); E87.1 Hypo-osmolality and hyponatremia; I48.91 Unspecified atrial fibrillation; I25.10 Atherosclerotic heart disease of native coronary artery without angina pectoris; J45.909 Unspecified asthma, uncomplicated; K21.9 Gastro-esophageal reflux disease without esophagitis; E11.9 Type 2 diabetes mellitus without complications; I25.2 Old myocardial infarction; Z95.1 Presence of aortocoronary bypass graft; Z88.0 Allergy status to penicillin; Z79.899 Other long term (current) drug therapy; Z79.84 Long term (current) use of oral hypoglycemic drugs
CPT/HCPCS: 36415; 80053; 81001; 84484; 85025; 85610; 93005; 96361; 96374; 99284; A9270; J2405; J7030

== ENCOUNTER 2020-03-14 13:16 | Emergency (ER) | payer MEDICAID ==
[2020-03-14 13:27] VITALS: BP 108/81; PULSE 72
[2020-03-14 15:09] LABS: ANION GAP 13.8 mEq/L (7-13); CHLORIDE,CL 97 mmol/L (98-107); SODIUM,NA 132 mmol/L (136-145)
--- NOTE | 2020-03-14 15:57 | CT ---
PROCEDURE INFORMATION: Exam: CT Abdomen And Pelvis Without Contrast Exam date and time: 03/14/2020 3:44 PM Age: 49 years old Clinical indication: Other: Pain; Additional info: Bilateral flank pain TECHNIQUE: Imaging protocol: Computed tomography of the abdomen and pelvis without contrast. Radiation optimization: All CT scans at this facility use at least one of these dose optimization techniques: automated exposure control; mA and/or kV adjustment per patient size (includes targeted exams where dose is matched to clinical indication); or iterative reconstruction. COMPARISON: CT Abdomen Pelvis wo Cont 02/26/2019 9:19 AM FINDINGS: Pleural space: Right pleural effusion is present. Heart: The heart demonstrates mild diffuse enlargement. Liver: There is a diffuse decrease in hepatic parenchymal density, consistent with mild fatty infiltration. Gallbladder and bile ducts: Multiple calcified gallstones are present. Pancreas: The pancreas is normal. Spleen: The spleen is normal. Adrenals: The adrenal glands are normal. Kidneys and ureters: The kidneys are normal. No renal calcifications or obstructive uropathy. Stomach and bowel: Mild diverticulosis is present in the distal colon. The stomach is normal. The duodenum is unremarkable. Appendix: Appendix is not well seen. Intraperitoneal space: No significant fluid collection. Vasculature: The vasculature demonstrates diffuse mild atherosclerotic calcification. There is mild atherosclerotic calcification of the coronary arteries. Lymph nodes: No enlarged lymph nodes. Bladder: There is mild bladder wall thickening consistent with incomplete distension, chronic outflow obstruction, or cystitis. Reproductive: The prostate demonstrates mild nonspecific enlargement. The seminal vesicles are normal. Bones/joints: The lumbar spine demonstrates mild degenerative changes at multiple levels. Soft tissues: Fat filled umbilical hernia. IMPRESSION: 1. No renal calcifications or obstructive uropathy. 2. There is mild bladder wall thickening consistent with incomplete distension, chronic outflow obstruction, or cystitis. 3. Mild diverticulosis is present in the distal colon. 4. Fat filled umbilical hernia. 5. Right pleural effusion is present. 6. Multiple calcified gallstones are present.
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
== END 2020-03-14 16:14 | disposition home or self-care (01) ==
LOC: DL.ED 13:16
DX: M54.5 Low back pain (principal); I48.91 Unspecified atrial fibrillation; I25.10 Atherosclerotic heart disease of native coronary artery without angina pectoris; K21.9 Gastro-esophageal reflux disease without esophagitis; E11.9 Type 2 diabetes mellitus without complications; Z88.0 Allergy status to penicillin; Z79.01 Long term (current) use of anticoagulants; Z79.899 Other long term (current) drug therapy; Z79.84 Long term (current) use of oral hypoglycemic drugs
CPT/HCPCS: 36415; 74176; 80053; 81001; 85025; 96372; 99284; J2360

== ENCOUNTER 2020-03-23 09:56 | Emergency (ER) | payer MEDICAID ==
[2020-03-23] MEDS ORDERED: Sodium Chloride 0.9% 10 ML Syringe FLUSH PRN (10:02)
[2020-03-23 10:14] VITALS: BP 124/80; PULSE 77
--- NOTE | 2020-03-23 10:22 | CR ---
PROCEDURE INFORMATION: Exam: XR Chest, 1 View Exam date and time: 03/23/2020 10:10 AM Age: 49 years old Clinical indication: Other: Chest pain TECHNIQUE: Imaging protocol: XR of the chest Views: 1 view. COMPARISON: CR Chest 1V Frontal 07/30/2019 9:54 AM FINDINGS: Tubes, catheters and devices: There are stable sternal sutures. Lungs: Unremarkable. No consolidation. Pleural space: There is now blunting of the right costophrenic angle. Heart/Mediastinum: Unremarkable. No cardiomegaly. Bones/joints: Unremarkable. IMPRESSION: The lungs are clear with blunting of the right costophrenic angle.
[2020-03-23 10:34] LABS: CHLORIDE,CL 101 mmol/L (98-107); SODIUM,NA 137 mmol/L (136-145)
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
--- NOTE | 2020-03-23 11:36 | CR ---
EXAMINATION: Abdomen 3V AP Flat Upright SEX: Male AGE: 49 years CLINICAL HISTORY: 49-year-old male with distended abdomen and hypoactive bowel sounds. Recent CT exam 14 March 2020 revealed "mild diverticulosis distal colon, fat filled umbilical hernia, multiple gallstones and right pleural effusion". Interpretation: (External surveillance system monitor leads) 1. Chronic hypertrophic marginal spondylosis. 2. Dependent pleural effusion right lung base. 3. No abdominal soft tissue mass lesion, pathologic calcifications or signs of mechanical bowel obstruction. 4. Symmetrically distended midline urinary bladder (pelvis). CONCLUSION: Nonspecific plain film exam abdomen.
[2020-03-23] MEDS ORDERED: Furosemide 40 MG/4 ML VIAL IVPUSH ONE (11:45)
== END 2020-03-23 12:34 | disposition home or self-care (01) ==
LOC: DL.ED 09:56
DX: I50.9 Heart failure, unspecified (principal); I48.91 Unspecified atrial fibrillation; I25.10 Atherosclerotic heart disease of native coronary artery without angina pectoris; I25.2 Old myocardial infarction; J45.909 Unspecified asthma, uncomplicated; K21.9 Gastro-esophageal reflux disease without esophagitis; E11.9 Type 2 diabetes mellitus without complications; Z87.891 Personal history of nicotine dependence; Z79.899 Other long term (current) drug therapy; Z88.0 Allergy status to penicillin; Z79.84 Long term (current) use of oral hypoglycemic drugs; Z79.01 Long term (current) use of anticoagulants
CPT/HCPCS: 36415; 71045; 74019; 80053; 82150; 83690; 83880; 84484; 85025; 85610; 93005; 96374; 99285; J1940

== ENCOUNTER 2020-03-23 19:49 | Emergency (ER) | payer MEDICAID ==
[2020-03-23] MEDS ORDERED: Acetaminophen/HYDROcodone 325-10 MG Tab PO ONE (19:50)
[2020-03-23 20:02] VITALS: PULSE 78
[2020-03-23] MEDS ORDERED: HYDROmorphone 1 MG/ML Syringe IVPUSH ONE (20:19)
[2020-03-23] MEDS ORDERED: Ondansetron 4 MG/2 ML SDV IV ONE (20:19)
[2020-03-23] MEDS ORDERED: Lactated Ringers 1,000 ML IV ONE (20:20)
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
[2020-03-23] MEDS ORDERED: Aspirin 81 MG Tab.Chew PO ONE (20:39)
[2020-03-23] MEDS ORDERED: Nitroglycerin 0.4 MG Tab.SL SL ONE (20:41)
[2020-03-23 20:49] VITALS: BP 119/76
[2020-03-23 20:54] LABS: ANION GAP 13.5 mEq/L (7-13); CHLORIDE,CL 101 mmol/L (98-107); SODIUM,NA 140 mmol/L (136-145)
--- NOTE | 2020-03-23 21:52 | CT ---
PROCEDURE INFORMATION: Exam: CT Abdomen And Pelvis With Contrast Exam date and time: 03/23/2020 9:23 PM Age: 49 years old Clinical indication: Abdominal pain; Generalized; Additional info: Abd pain elevated t angelo known gallstones. TECHNIQUE: Imaging protocol: Computed tomography of the abdomen and pelvis with intravenous contrast. Radiation optimization: All CT scans at this facility use at least one of these dose optimization techniques: automated exposure control; mA and/or kV adjustment per patient size (includes targeted exams where dose is matched to clinical indication); or iterative reconstruction. Contrast material: ISOVUE 300; Contrast volume: 75 ml; Contrast route: INTRAVENOUS (IV); COMPARISON: CT Abdomen Pelvis wo Cont 03/14/2020 3:44 PM FINDINGS: Lungs: Lung bases are otherwise clear. Liver: There is moderate enlargement of the liver. There is a diffuse decrease in hepatic parenchymal density, consistent with fatty infiltration. The liver has a nodular contour and there is relative hypertrophy of the caudate lobe, favoring cirrhosis. Gallbladder and bile ducts: Multiple calcified gallstones are present. There is no evidence of biliary ductal dilation. Pancreas: Normal. No ductal dilation. Spleen: Normal. No splenomegaly. Adrenals: Normal. No mass. Kidneys and ureters: Normal. No hydronephrosis. Stomach and bowel: No bowel wall thickening, obstruction, or other acute pathology. Diffuse colonic diverticulosis is present. Appendix: No evidence of appendicitis. Intraperitoneal space: Trace abdominopelvic ascites are present. No fluid collections. No pneumoperitoneum. Stable small right pleural effusion. Vasculature: Recanalization of the umbilical vein. The vasculature demonstrates diffuse mild atherosclerotic calcification. Lymph nodes: Unremarkable. No enlarged lymph nodes. Bladder: Unremarkable as visualized. Reproductive: Unremarkable as visualized. Bones/joints: No acute abnormality or aggressive osseous lesion. Soft tissues: Umbilical varices are appreciated. Small fat containing umbilical hernia. IMPRESSION: 1. Cirrhosis and early sequela of portal hypertension. 2. Stable small right pleural effusion. 3. Other incidental findings as detailed above.
[2020-03-23] MEDS ORDERED: Iopamidol 612 MG/ML 100 ML Bottle IVPUSH ONE (22:06)
[2020-03-23] MEDS ORDERED: Acetaminophen/HYDROcodone 325-10 MG Tab ONE (23:15)
== END 2020-03-23 23:23 | disposition home or self-care (01) ==
LOC: DL.ED 19:49
DX: K80.80 Other cholelithiasis without obstruction (principal); R31.9 Hematuria, unspecified; E11.9 Type 2 diabetes mellitus without complications; I25.10 Atherosclerotic heart disease of native coronary artery without angina pectoris; I25.2 Old myocardial infarction; I48.91 Unspecified atrial fibrillation; K21.9 Gastro-esophageal reflux disease without esophagitis; Z79.84 Long term (current) use of oral hypoglycemic drugs; Z79.01 Long term (current) use of anticoagulants; Z79.899 Other long term (current) drug therapy; Z88.0 Allergy status to penicillin
CPT/HCPCS: 36415; 74177; 80053; 81001; 83605; 83690; 83880; 84484; 85025; 86140; 93005; 96361; 96374; 96375; 99284; A9270; J1170; J2405; J7120; Q9967

== ENCOUNTER 2020-03-24 14:10 | Emergency (ER) | payer MEDICAID ==
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
[2020-03-24] MEDS ORDERED: Ondansetron 4 MG Tab.DIS PO ONE (14:57)
[2020-03-24 15:37] LABS: ANION GAP 13.3 mEq/L (7-13); CHLORIDE,CL 95 mmol/L (98-107); SODIUM,NA 133 mmol/L (136-145)
[2020-03-24] MEDS ORDERED: Metoclopramide 10 MG/2 ML SDV IVPUSH ONE (15:57)
[2020-03-24] MEDS ORDERED: Sodium Chloride 0.9% 10 ML Syringe FLUSH PRN (15:57)
--- NOTE | 2020-03-24 16:10 | US ---
EXAMINATION: Abdomen Ltd SEX: Male AGE: 49 years CLINICAL HISTORY: 49-year-old male with vomiting and "left lower quadrant" abdominal pain. (CT 23 March 2020 revealed "gallstones". Interpretation: Limited exam right upper quadrant confirms DISEASED GALLBLADDER i.e. multiple tiny, dependent, intraluminal echogenic, "shadowing" gallstones. Gallbladder is distended but uniformly thin wall and no pericystic fluid. No mucosal wall polyps. Note: Although no discrete intraluminal ductal stone appreciated, the common bile duct (CBD) measures 9.9 mm i.e. dilated and cannot exclude occult choledocholithiasis. Clinical? Bilirubin? No ascites. CONCLUSION: Cholelithiasis. Abnormally dilated CBD (see above).
[2020-03-24 17:12] VITALS: BP 159/63; PULSE 69
== END 2020-03-24 17:25 ==
LOC: DL.ED 14:10
DX: K80.70 Calculus of gallbladder and bile duct without cholecystitis without obstruction (principal); J45.909 Unspecified asthma, uncomplicated; K21.9 Gastro-esophageal reflux disease without esophagitis; E11.9 Type 2 diabetes mellitus without complications; I48.91 Unspecified atrial fibrillation; I25.10 Atherosclerotic heart disease of native coronary artery without angina pectoris; I25.2 Old myocardial infarction; Z88.0 Allergy status to penicillin; Z79.01 Long term (current) use of anticoagulants; Z79.84 Long term (current) use of oral hypoglycemic drugs; Z79.899 Other long term (current) drug therapy
CPT/HCPCS: 36415; 76705; 80053; 80305; 80307; 81001; 82150; 83690; 85025; 96374; 99285; A9270; J2765; 99284

== ENCOUNTER 2020-06-19 20:28 | Emergency (ER) | payer MEDICAID ==
[2020-06-19 20:36] VITALS: BP 136/83; PULSE 82
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
== END 2020-06-19 23:10 | disposition home or self-care (01) ==
LOC: DL.ED 20:28
DX: R04.0 Epistaxis (principal); J45.909 Unspecified asthma, uncomplicated; K21.9 Gastro-esophageal reflux disease without esophagitis; E11.9 Type 2 diabetes mellitus without complications; I48.91 Unspecified atrial fibrillation; I25.10 Atherosclerotic heart disease of native coronary artery without angina pectoris; I25.2 Old myocardial infarction; Z95.1 Presence of aortocoronary bypass graft; Z88.0 Allergy status to penicillin; Z79.01 Long term (current) use of anticoagulants; Z79.84 Long term (current) use of oral hypoglycemic drugs; Z79.899 Other long term (current) drug therapy
CPT/HCPCS: 99283

== ENCOUNTER 2021-03-30 11:12 | Emergency (ER) | payer MEDICAID ==
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
[2021-03-30 11:51] VITALS: BP 124/90; PULSE 73
--- NOTE | 2021-03-30 12:06 | CR ---
EXAMINATION: Chest 1V Frontal SEX: Male AGE: 50 years CLINICAL HISTORY: 50-year-old male chest pain. Interpretation: No acute new cardiopulmonary abnormality since AP comparison 23 March 2020 and 30 July 2019. 1. Sternotomy wires and external tax investigator leads. Normal cardiac silhouette (size and configuration). 2. No new pulmonary vascular congestion, cephalization of flow, alveolar edema or dependent pleural effusion. (Chronic pleural-parenchymal reactive scarring blunts the right costophrenic sulcus unchanged since 23 March 2020) 3. No new lung mass or hilar lymphadenopathy. 4. No pneumothorax or pneumomediastinum. Midline tracheal bronchial airway unremarkable. 5. No alveolar infiltrates, atelectasis/collapse, or peripheral "groundglass" interstitial lung densities.
[2021-03-30 12:26] LABS: ANION GAP 15.8 mEq/L (7-13); CHLORIDE,CL 103 mmol/L (98-107); SODIUM,NA 139 mmol/L (136-145)
[2021-03-30 12:26] LABS: AMPHETAMINES,URINE NEGATIVE (NEGATIVE); BARBITURATES,URINE NEGATIVE (NEGATIVE); BENZODIAZEPINE,URINE NEGATIVE (NEGATIVE); MDMA (ECSTASY), URINE NEGATIVE (NEGATIVE); METHADONE,URINE NEGATIVE (NEGATIVE); METHAMPHETAMINES,URINE NEGATIVE (NEGATIVE); OPIATES,URINE NEGATIVE (NEGATIVE); OXYCODONE,URINE NEGATIVE (NEGATIVE); PHENCYCLIDINE,URINE NEGATIVE (NEGATIVE); TCA,URINE NEGATIVE (NEGATIVE)
[2021-03-30 12:27] LABS: PTT,PARTIAL THROMBOPLSTIN TIME 35.8 SEC (22.0-34.0)
[2021-03-30 12:49] LABS: CORONAVIRUS COVID-19 NAA NEGATIVE (NEGATIVE)
== END 2021-03-30 13:28 | disposition home or self-care (01) ==
LOC: DL.ED 11:12
DX: J06.9 Acute upper respiratory infection, unspecified (principal); R07.89 Other chest pain; I45.10 Unspecified right bundle-branch block; I48.91 Unspecified atrial fibrillation; I25.810 Atherosclerosis of coronary artery bypass graft(s) without angina pectoris; I25.2 Old myocardial infarction; J45.909 Unspecified asthma, uncomplicated; K21.9 Gastro-esophageal reflux disease without esophagitis; E11.9 Type 2 diabetes mellitus without complications; Z88.0 Allergy status to penicillin; Z79.01 Long term (current) use of anticoagulants; Z79.84 Long term (current) use of oral hypoglycemic drugs; Z79.899 Other long term (current) drug therapy; Z20.822 Contact with and (suspected) exposure to COVID-19
CPT/HCPCS: 0240U; 36415; 71045; 80053; 80305-QW; 80307; 81001; 82947; 83605; 83880; 84484; 85025; 85610; 85730; 86140; 93005; 93010; 99284; 99285-25

== ENCOUNTER 2021-08-15 10:00 | Emergency (ER) | payer MEDICAID ==
[2021-08-15 10:15] VITALS: BP 131/95; PULSE 72
[2021-08-15 11:07] LABS: CORONAVIRUS COVID-19 NAA NEGATIVE (NEGATIVE); RESPIRATORY SYNCYTIAL VIR NAA NEGATIVE (NEGATIVE)
[2021-08-15] MEDS ORDERED: Acetaminophen 500 MG Tab PO ONE (11:27)
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
== END 2021-08-15 12:40 | disposition home or self-care (01) ==
LOC: DL.ED 10:00
DX: G44.209 Tension-type headache, unspecified, not intractable (principal); E11.9 Type 2 diabetes mellitus without complications; I25.2 Old myocardial infarction; I25.10 Atherosclerotic heart disease of native coronary artery without angina pectoris; I48.91 Unspecified atrial fibrillation; K21.9 Gastro-esophageal reflux disease without esophagitis; Z88.0 Allergy status to penicillin; Z79.01 Long term (current) use of anticoagulants; Z79.899 Other long term (current) drug therapy; Z95.1 Presence of aortocoronary bypass graft; Z20.822 Contact with and (suspected) exposure to COVID-19
CPT/HCPCS: 0241U; 99284; A9270

== ENCOUNTER 2021-08-17 14:43 | Emergency (ER) | payer MEDICAID ==
[2021-08-17 14:52] VITALS: PULSE 79
[2021-08-17 15:09] VITALS: BP 120/70
[2021-08-17] MEDS ORDERED: Cyclobenzaprine 10 MG Tab PO ONE (15:19)
[2021-08-17] MEDS ORDERED: Ketorolac 30 MG/ML SDV IM ONE (15:20)
[2021-08-17] MEDS ORDERED: Acetaminophen 325 MG Tab PO ONE (15:20)
--- NOTE | 2021-08-17 15:49 | CT ---
EXAMINATION: Head wo Cont SEX: Male AGE: 51 years CLINICAL HISTORY: 51-year-old male with severe, persistent frontal HEADACHE. Scan technique: Volume acquisition of data emergency unenhanced CT scan of the head and brain obtained with the patient lying supine on the Siemens multi slice scanner [place], [place]. All data archived in the PACS system for storage, reformatting axial/sagittal/coronal planes and study (bone/brain windows). Interpretation: 1. Generalized mild but symmetric cerebral and cerebellar cortical atrophy. 2. Underlying mirror-image normal ventricular system. No hydrocephalus. Jad cisterna magna. 3. No supratentorial or posterior fossa mass lesion. 4. Subtle scattered areas of decreased attenuation in the periventricular white matter suggesting microvascular ischemic change i.e. infarcts. Diabetic? Hypertension? Smoker? 5. No sign of acute intracerebral, intraventricular or subarachnoid bleed. 6. Uniformly thick bony calvarium. Symmetric clear pneumatization of the paranasal and mastoid sinuses. No skull fracture, underlying brain contusion or epidural/subdural hematomas. CONCLUSION: Generalized atrophy (mild) and microvascular ischemic changes. No intracranial mass, hydrocephalus or bleed.
[2021-08-17 15:50] LABS: ANION GAP 16.8 mEq/L (7-13); CHLORIDE,CL 99 mmol/L (98-107); SODIUM,NA 137 mmol/L (136-145)
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
== END 2021-08-17 16:36 | disposition home or self-care (01) ==
LOC: DL.ED 14:43
DX: G44.201 Tension-type headache, unspecified, intractable (principal); I25.2 Old myocardial infarction; I25.10 Atherosclerotic heart disease of native coronary artery without angina pectoris; K21.9 Gastro-esophageal reflux disease without esophagitis; E11.9 Type 2 diabetes mellitus without complications; Z79.84 Long term (current) use of oral hypoglycemic drugs; Z95.1 Presence of aortocoronary bypass graft; Z88.0 Allergy status to penicillin; Z79.899 Other long term (current) drug therapy; Z79.01 Long term (current) use of anticoagulants
CPT/HCPCS: 36415; 70450; 80053; 85025; 85610; 86140; 96372; 99284; A9270; J1885

== ENCOUNTER 2021-11-29 09:18 | Emergency (ER) | payer MEDICAID ==
[2021-11-29 09:34] VITALS: BP 125/89; PULSE 78
[2021-11-29 10:00] LABS: ANION GAP 13.4 mEq/L (7-13); CHLORIDE,CL 101 mmol/L (98-107); ESTIMATED GFR > 60; SODIUM,NA 134 mmol/L (136-145)
[2021-11-29 10:21] LABS: CORONAVIRUS COVID-19 NAA NEGATIVE (NEGATIVE)
[2021-11-29] MEDS ORDERED: Iopamidol 612 MG/ML 100 ML Bottle IVPUSH ONE (10:50)
[2021-11-29] MEDS ORDERED: Ketorolac 30 MG/ML SDV IVPUSH ONE (13:07)
[2021-11-29] MEDS ORDERED: Ciprofloxacin 500 MG Tab PO ONE (13:09)
[2021-11-29] MEDS ORDERED: metroNIDAZOLE 250 MG Tab PO ONE (13:09)
== END 2021-11-29 13:32 | disposition home or self-care (01) ==
LOC: DL.ED 09:18
DX: K57.32 Diverticulitis of large intestine without perforation or abscess without bleeding (principal); G44.209 Tension-type headache, unspecified, not intractable; I48.91 Unspecified atrial fibrillation; I25.10 Atherosclerotic heart disease of native coronary artery without angina pectoris; I25.2 Old myocardial infarction; E11.9 Type 2 diabetes mellitus without complications; Z88.0 Allergy status to penicillin; Z79.4 Long term (current) use of insulin; Z79.899 Other long term (current) drug therapy; Z79.01 Long term (current) use of anticoagulants; Z20.822 Contact with and (suspected) exposure to COVID-19
CPT/HCPCS: 0240U; 36415; 70450; 71045; 74177; 80053; 81001; 82150; 82947; 83605; 83690; 84484; 85025; 85379; 85610; 87040; 87086; 93005; 96374; 99285; A9270; J1885; Q9967; 93010; 99283

== ENCOUNTER 2022-02-26 12:29 | Emergency (ER) | payer MEDICAID ==
[2022-02-26 13:05] VITALS: BP 117/78; PULSE 68
[2022-02-26] MEDS ORDERED: Ketorolac 30 MG/ML SDV IM ONE (13:44)
== END 2022-02-26 14:07 | disposition home or self-care (01) ==
LOC: DL.ED 12:29
DX: G44.209 Tension-type headache, unspecified, not intractable (principal); M79.10 Myalgia, unspecified site; I48.91 Unspecified atrial fibrillation; I25.10 Atherosclerotic heart disease of native coronary artery without angina pectoris; I25.2 Old myocardial infarction; E11.9 Type 2 diabetes mellitus without complications; Z95.1 Presence of aortocoronary bypass graft; Z88.0 Allergy status to penicillin; Z79.01 Long term (current) use of anticoagulants; Z79.899 Other long term (current) drug therapy; Z79.84 Long term (current) use of oral hypoglycemic drugs
CPT/HCPCS: 96372; 99283; J1885

== ENCOUNTER 2022-02-27 09:54 | Emergency (ER) | payer MEDICAID ==
[2022-02-27 10:15] VITALS: BP 134/84; PULSE 78
[2022-02-27] MEDS: Aspirin 81 MG Tab.Chew PO ONE (10:28)
[2022-02-27] MEDS: Ondansetron 4 MG Tab.DIS PO ONE (10:29)
[2022-02-27] MEDS: Sodium Chloride 0.9% 10 ML Syringe FLUSH PRN (10:30)
[2022-02-27 10:43] LABS: ANION GAP 16.2 mEq/L (7-13); CHLORIDE,CL 99 mmol/L (98-107); SODIUM,NA 130 mmol/L (136-145)
[2022-02-27 10:44] LABS: ESTIMATED GFR > 60
[2022-02-27] MEDS: Sodium Chloride 0.9% 1,000 ML IV ONE ×2 (11:18→12:04)
[2022-02-27] MEDS: Iopamidol 612 MG/ML 100 ML Bottle IVPUSH ONE (11:33)
[2022-02-27 12:24] LABS: AMPHETAMINES,URINE NEGATIVE (NEGATIVE); BARBITURATES,URINE NEGATIVE (NEGATIVE); BENZODIAZEPINE,URINE NEGATIVE (NEGATIVE); MDMA (ECSTASY), URINE NEGATIVE (NEGATIVE); METHADONE,URINE NEGATIVE (NEGATIVE); METHAMPHETAMINES,URINE NEGATIVE (NEGATIVE); OPIATES,URINE NEGATIVE (NEGATIVE); OXYCODONE,URINE NEGATIVE (NEGATIVE); PHENCYCLIDINE,URINE NEGATIVE (NEGATIVE); TCA,URINE NEGATIVE (NEGATIVE)
== END 2022-02-27 13:40 | disposition home or self-care (01) ==
LOC: DL.ED 09:54
DX: K80.20 Calculus of gallbladder without cholecystitis without obstruction (principal); I25.10 Atherosclerotic heart disease of native coronary artery without angina pectoris; I25.2 Old myocardial infarction; J45.909 Unspecified asthma, uncomplicated; K21.9 Gastro-esophageal reflux disease without esophagitis; E11.9 Type 2 diabetes mellitus without complications; Z79.899 Other long term (current) drug therapy; Z79.84 Long term (current) use of oral hypoglycemic drugs; Z79.01 Long term (current) use of anticoagulants; Z88.0 Allergy status to penicillin
CPT/HCPCS: 36415; 71045; 74018; 74177; 80053; 80305; 81001; 83605; 83690; 83735; 84443; 84484; 85025; 86140; 93005; 96360; 99285; A9270; J3490; J7030; Q9967; 93010; 99284

== ENCOUNTER 2022-05-20 08:47 | Emergency (ER) | payer MEDICAID ==
[2022-05-20] MEDS ORDERED: Sodium Chloride 0.9% 10 ML Syringe FLUSH PRN (09:30)
[2022-05-20] MEDS ORDERED: Famotidine 20 MG/2 ML SDV IVPUSH ONE (09:30)
[2022-05-20] MEDS ORDERED: Ondansetron 4 MG/2 ML SDV IV ONE ×2 (09:30→10:28)
[2022-05-20] MEDS ORDERED: Sodium Chloride 0.9% 1,000 ML IV ONE (09:31)
[2022-05-20 10:09] LABS: ANION GAP 15.5 mEq/L (7-13)
[2022-05-20] MEDS ORDERED: Iopamidol 612 MG/ML 100 ML Bottle IVPUSH ONE (10:27)
[2022-05-20] MEDS ORDERED: Morphine 2 MG/ML SYRINGE IVPUSH ONE (10:28)
[2022-05-20 12:23] VITALS: BP 141/93; PULSE 70
== END 2022-05-20 12:09 | disposition home or self-care (01) ==
LOC: DL.ED 08:47
DX: K52.9 Noninfective gastroenteritis and colitis, unspecified (principal); K80.20 Calculus of gallbladder without cholecystitis without obstruction; I48.91 Unspecified atrial fibrillation; E11.9 Type 2 diabetes mellitus without complications; I25.10 Atherosclerotic heart disease of native coronary artery without angina pectoris; F41.9 Anxiety disorder, unspecified; K21.9 Gastro-esophageal reflux disease without esophagitis; Z88.0 Allergy status to penicillin
CPT/HCPCS: 36415; 74177; 80053; 81001; 82150; 83605; 83690; 85025; 96361; 96374; 96375; 96376; 99285; J2270; J2405; J3490; J7030

== ENCOUNTER 2023-01-28 15:33 | Emergency (ER) | payer MEDICAID ==
[2023-01-28 15:51] VITALS: BP 125/77; PULSE 83
[2023-01-28 16:06] LABS: BASOPHILS PERCENT AUTO 0.1 % (0.0-1.0); HEMATOCRIT 40.1 % (40.0-54.0); HEMOGLOBIN 13.6 g/dL (14.0-18.0); LYMPHOCYTES PERCENT AUTO 13.1 % (20.5-50.1); MEAN CORPUSCULAR HEMOGLOBIN 32.2 pg (27.0-34.0); MEAN CORPUSCULAR HGB CONC 33.9 g/dL (33.0-35.0); MEAN CORPUSCULAR VOLUME 94.8 fL (80-100); MONOCYTES PERCENT AUTO 9.3 % (2-8); NEUTROPHILS PERCENT AUTO 75.5 % (42.2-75.2); PLATELET COUNT,PLT 118 10^3/uL (150-450); RED BLOOD CELL COUNT 4.23 10^6/uL (4.6-6.2); WHITE BLOOD CELL COUNT,WBC 7.3 10^3/uL (5.0-10.0)
[2023-01-28 16:28] LABS: A/G RATIO 1.3; ALANINE AMINOTRANSFERASE,ALT 38 U/L (16-63); ALKALINE PHOSPHATASE 90 U/L (46-116); AMYLASE 144 U/L (25-115); ANION GAP 13.7 mEq/L (7-13); ASPARTATE AMNIOTRANSFERASE,AST 20 U/L (15-37); BILIRUBIN TOTAL 0.8 mg/dL (0.2-1.0); BLOOD UREA NITROGEN,BUN 19 mg/dL (7-18); BUN/CREATININE RATIO 27.1 (No establ ref range); C-REACTIVE PROTEIN 0.8 mg/dL (0.0-0.9); CARBON DIOXIDE,CO2 24 mmol/L (21-32); CHLORIDE,CL 107 mmol/L (98-107); EST CRCL DRUG DOSING (CG) 121.17 mL/min; GLUCOSE RANDOM 99 mg/dL (70-99); LIPASE 608 U/L (73-393); MAGNESIUM 1.8 mg/dL (1.8-2.4); POTASSIUM,K 3.7 mmol/L (3.5-5.1); PROTEIN TOTAL,TP 7.1 g/dL (6.4-8.2); SODIUM,NA 141 mmol/L (136-145)
[2023-01-28 16:29] LABS: APPEARANCE,URINE CLEAR (CLEAR); BILIRUBIN,URINE NEGATIVE (NEGATIVE); COLOR,URINE YELLOW (YELLOW); GLUCOSE,URINE NEGATIVE (NEGATIVE); KETONES,URINE 15 (NEGATIVE); LEUKOCYTE ESTERASE,URINE NEGATIVE (NEGATIVE); NITRITE,URINE NEGATIVE (NEGATIVE); OCCULT BLOOD,URINE MODERATE (NEGATIVE); PH,URINE 5.5 (5.0-9.0); PROTEIN,URINE NEGATIVE (NEGATIVE); UROBILINOGEN,URINE 0.2 mg/dL (0.2-1.0)
[2023-01-28 16:31] LABS: ESTIMATED GFR 111 mL/min (>=60); ETHANOL BLOOD MEDICAL < 3 mg/dL (0)
[2023-01-28 16:32] LABS: AMPHETAMINES,URINE NEGATIVE (NEGATIVE); BARBITURATES,URINE NEGATIVE (NEGATIVE); BENZODIAZEPINE,URINE NEGATIVE (NEGATIVE); MDMA (ECSTASY), URINE NEGATIVE (NEGATIVE); METHADONE,URINE NEGATIVE (NEGATIVE); METHAMPHETAMINES,URINE NEGATIVE (NEGATIVE); OPIATES,URINE NEGATIVE (NEGATIVE); OXYCODONE,URINE NEGATIVE (NEGATIVE); PHENCYCLIDINE,URINE NEGATIVE (NEGATIVE); TCA,URINE NEGATIVE (NEGATIVE)
[2023-01-28 16:33] LABS: INR 2.1 (0.9-1.2); PROTHROMBIN TIME 20.7 SEC (9.0-12.0); PTT,PARTIAL THROMBOPLSTIN TIME 37.5 SEC (22.0-34.0)
[2023-01-28] MEDS ORDERED: Ondansetron 4 MG/2 ML SDV IVPUSH ONE (16:39)
[2023-01-28] MEDS ORDERED: Sodium Chloride 0.9% 1,000 ML IV ONE (16:39)
[2023-01-28] MEDS ORDERED: HYDROmorphone 1 MG/ML Syringe IVPUSH ONE (16:39)
[2023-01-28] MEDS ORDERED: Iopamidol 612 MG/ML 100 ML Bottle IVPUSH ONE (16:40)
[2023-01-28 16:54] LABS: WBC,URINE NOT SEEN /HPF (0-5/HPF)
[2023-01-28 16:55] LABS: BACTERIA,URINE MODERATE /HPF (0-FEW/HPF); EPITHELIAL CELLS,URINE NOT SEEN /HPF (NOT SEEN); MUCUS,URINE MANY /LPF (NOT SEEN)
[2023-01-28 17:07] LABS: LACTIC ACID 0.6 mmol/L (0.4-2.0)
[2023-01-28] MEDS ORDERED: Metoclopramide 10 MG/2 ML SDV IVPUSH ONE (18:37)
[2023-01-28] MEDS ORDERED: Lactated Ringers 1,000 ML IV ONE (19:02)
== END 2023-01-28 20:24 | disposition home or self-care (01) ==
LOC: DL.ED 15:33
DX: K80.20 Calculus of gallbladder without cholecystitis without obstruction (principal); I48.91 Unspecified atrial fibrillation; I25.10 Atherosclerotic heart disease of native coronary artery without angina pectoris; I25.2 Old myocardial infarction; J45.909 Unspecified asthma, uncomplicated; K21.9 Gastro-esophageal reflux disease without esophagitis; E11.9 Type 2 diabetes mellitus without complications; Z79.4 Long term (current) use of insulin; Z79.82 Long term (current) use of aspirin; Z79.01 Long term (current) use of anticoagulants; Z88.0 Allergy status to penicillin; Z79.899 Other long term (current) drug therapy
CPT/HCPCS: 36415; 74177; 76705; 80053; 80305; 80307; 81001; 82150; 83605; 83690; 83735; 85025; 85610; 85730; 86140; 96361; 96374; 96375; 99284; J1170; J2405; J2765; J7030; J7120; Q9967

== ENCOUNTER 2023-04-10 15:37 | Emergency (ER) | payer MEDICAID ==
[2023-04-10 15:44] VITALS: BP 122/83; PULSE 67
== END 2023-04-10 17:07 | disposition home or self-care (01) ==
LOC: DL.ED 15:37
DX: R13.10 Dysphagia, unspecified (principal); J02.9 Acute pharyngitis, unspecified; R09.82 Postnasal drip; I10 Essential (primary) hypertension; Z79.82 Long term (current) use of aspirin; Z88.0 Allergy status to penicillin; Z79.01 Long term (current) use of anticoagulants; Z79.899 Other long term (current) drug therapy
CPT/HCPCS: 70360; 87081; 87430; 99283; 99284

== ENCOUNTER 2023-04-11 16:52 | Emergency (ER) | payer MEDICAID ==
[2023-04-11] MEDS ORDERED: Sodium Chloride 0.9% 10 ML Syringe FLUSH PRN (16:54)
[2023-04-11 17:33] LABS: BASOPHILS PERCENT AUTO 0.7 % (0.0-1.0); EOSINOPHILS PERCENT AUTO 3.8 % (1.0-3.0); HEMATOCRIT 40.2 % (40.0-54.0); HEMOGLOBIN 13.7 g/dL (14.0-18.0); LYMPHOCYTES PERCENT AUTO 34.8 % (20.5-50.1); MEAN CORPUSCULAR HEMOGLOBIN 32.2 pg (27.0-34.0); MEAN CORPUSCULAR HGB CONC 34.1 g/dL (33.0-35.0); MEAN CORPUSCULAR VOLUME 94.4 fL (80-100); MONOCYTES PERCENT AUTO 17.8 % (2-8); NEUTROPHILS PERCENT AUTO 42.9 % (42.2-75.2); PLATELET COUNT,PLT 125 10^3/uL (150-450); RED BLOOD CELL COUNT 4.26 10^6/uL (4.6-6.2); WHITE BLOOD CELL COUNT,WBC 5.7 10^3/uL (5.0-10.0)
[2023-04-11 17:57] LABS: PROTHROMBIN TIME 29.3 SEC (9.0-12.0); PTT,PARTIAL THROMBOPLSTIN TIME 40.7 SEC (22.0-34.0)
[2023-04-11 18:01] LABS: A/G RATIO 1.2; ALANINE AMINOTRANSFERASE,ALT 34 U/L (16-63); ALBUMIN 4.1 g/dL (3.4-5.0); ALKALINE PHOSPHATASE 90 U/L (46-116); ANION GAP 16.6 mEq/L (7-13); ASPARTATE AMNIOTRANSFERASE,AST 20 U/L (15-37); BILIRUBIN TOTAL 0.6 mg/dL (0.2-1.0); BLOOD UREA NITROGEN,BUN 16 mg/dL (7-18); BUN/CREATININE RATIO 21.3 (No establ ref range); C-REACTIVE PROTEIN 0.5 mg/dL (0.0-0.9); CALCIUM 8.9 mg/dL (8.5-10.1); CARBON DIOXIDE,CO2 22 mmol/L (21-32); CHLORIDE,CL 106 mmol/L (98-107); CREATININE 0.75 mg/dL (0.70-1.30); EST CRCL DRUG DOSING (CG) 106.74 mL/min; GLUCOSE RANDOM 101 mg/dL (70-99); LACTIC ACID 0.5 mmol/L (0.4-2.0); MAGNESIUM 2.1 mg/dL (1.8-2.4); POTASSIUM,K 3.6 mmol/L (3.5-5.1); PROTEIN TOTAL,TP 7.6 g/dL (6.4-8.2); SODIUM,NA 141 mmol/L (136-145)
[2023-04-11 18:03] LABS: B-TYPE NATRIURETIC PEPTIDE,BNP 104 pg/ml (0-100)
[2023-04-11 18:15] LABS: ESTIMATED GFR 109 mL/min (>=60)
[2023-04-11] MEDS ORDERED: Furosemide 40 MG/4 ML VIAL IVPUSH ONE (18:18)
[2023-04-11] MEDS ORDERED: guaiFENesin/Dextromethorphan 100-10 MG/5 ML Soln 5 ML Cup PO ONE (20:14)
[2023-04-11 20:36] VITALS: BP 102/75; PULSE 77
== END 2023-04-11 20:32 | disposition home or self-care (01) ==
LOC: DL.ED 16:52
DX: R07.9 Chest pain, unspecified (principal); R06.02 Shortness of breath; I10 Essential (primary) hypertension; E11.9 Type 2 diabetes mellitus without complications; E78.00 Pure hypercholesterolemia, unspecified; K21.9 Gastro-esophageal reflux disease without esophagitis; Z79.01 Long term (current) use of anticoagulants; Z79.899 Other long term (current) drug therapy; Z79.82 Long term (current) use of aspirin; Z79.4 Long term (current) use of insulin; Z88.0 Allergy status to penicillin
CPT/HCPCS: 36415; 71045; 80053; 83605; 83735; 83880; 84145; 84484; 85025; 85610; 85730; 86140; 93005; 93010; 96374; 99284; 99285-25; A9270-GY; J1940; J3490

== ENCOUNTER 2023-09-12 09:49 | Emergency (ER) | payer MEDICAID ==
[2023-09-12] MEDS ORDERED: Acetaminophen 500 MG Tab PO ONE (09:55)
[2023-09-12] MEDS ORDERED: Ketorolac 30 MG/ML SDV IM ONE (09:56)
[2023-09-12 10:11] VITALS: BP 124/83; PULSE 77
[2023-09-12 11:18] LABS: CORONAVIRUS COVID-19 NAA NEGATIVE (NEGATIVE); INFLUENZA A NAA NEGATIVE (NEGATIVE); INFLUENZA B NAA NEGATIVE (NEGATIVE)
== END 2023-09-12 11:40 | disposition home or self-care (01) ==
LOC: DL.ED 09:49
DX: J06.9 Acute upper respiratory infection, unspecified (principal); I48.91 Unspecified atrial fibrillation; I25.10 Atherosclerotic heart disease of native coronary artery without angina pectoris; I25.2 Old myocardial infarction; J45.909 Unspecified asthma, uncomplicated; Z20.822 Contact with and (suspected) exposure to COVID-19; Z79.01 Long term (current) use of anticoagulants; Z79.4 Long term (current) use of insulin; Z79.82 Long term (current) use of aspirin; Z79.899 Other long term (current) drug therapy; Z88.0 Allergy status to penicillin
CPT/HCPCS: 0240U; 96372; 99283; A9270; J1885

== ENCOUNTER 2024-01-14 19:18 | Emergency (ER) | payer MEDICAID ==
[2024-01-14 19:43] VITALS: BP 118/76; PULSE 61
[2024-01-14] MEDS: Sodium Chloride 0.9% 10 ML Syringe FLUSH PRN (20:31)
[2024-01-14] MEDS: Metoclopramide 10 MG/2 ML SDV IVPUSH ONE (20:31)
[2024-01-14 20:45] LABS: BASOPHILS PERCENT AUTO 0.4 % (0.0-1.0); EOSINOPHILS PERCENT AUTO 2.4 % (1.0-3.0); HEMATOCRIT 38.6 % (40.0-54.0); HEMOGLOBIN 12.8 g/dL (14.0-18.0); LYMPHOCYTES PERCENT AUTO 27.6 % (20.5-50.1); MEAN CORPUSCULAR HGB CONC 33.2 g/dL (33.0-35.0); MEAN CORPUSCULAR VOLUME 96.5 fL (80-100); MONOCYTES PERCENT AUTO 7.8 % (2-8); NEUTROPHILS PERCENT AUTO 61.8 % (42.2-75.2); PLATELET COUNT,PLT 136 10^3/uL (150-450); WHITE BLOOD CELL COUNT,WBC 8.4 10^3/uL (5.0-10.0)
[2024-01-14 21:05] LABS: A/G RATIO 1.4; ALANINE AMINOTRANSFERASE,ALT 26 U/L (16-63); ALBUMIN 4.2 g/dL (3.4-5.0); ALKALINE PHOSPHATASE 79 U/L (46-116); ANION GAP 14.1 mEq/L (7-13); ASPARTATE AMNIOTRANSFERASE,AST 13 U/L (15-37); BILIRUBIN TOTAL 0.7 mg/dL (0.2-1.0); BLOOD UREA NITROGEN,BUN 16 mg/dL (7-18); BUN/CREATININE RATIO 23.2 (No establ ref range); CALCIUM 8.8 mg/dL (8.5-10.1); CARBON DIOXIDE,CO2 25 mmol/L (21-32); CHLORIDE,CL 106 mmol/L (98-107); CREATININE 0.69 mg/dL (0.70-1.30); EST CRCL DRUG DOSING (CG) 104.22 mL/min; GLUCOSE RANDOM 93 mg/dL (70-99); POTASSIUM,K 4.1 mmol/L (3.5-5.1); PROTEIN TOTAL,TP 7.3 g/dL (6.4-8.2); SODIUM,NA 141 mmol/L (136-145)
[2024-01-14 21:09] LABS: C-REACTIVE PROTEIN < 0.50 ng/dL (<=0.50); ESTIMATED GFR 111 mL/min (>=60); PROTHROMBIN TIME 28.8 SEC (9.0-12.0)
[2024-01-14 21:21] LABS: CORONAVIRUS COVID-19 NAA NEGATIVE (NEGATIVE); INFLUENZA A NAA NEGATIVE (NEGATIVE); INFLUENZA B NAA NEGATIVE (NEGATIVE); RESPIRATORY SYNCYTIAL VIR NAA NEGATIVE (NEGATIVE)
[2024-01-14] MEDS: diphenhydrAMINE 25 MG Tab PO ONE (22:39)
== END 2024-01-14 23:22 | disposition home or self-care (01) ==
LOC: DL.ED 19:18
DX: G44.209 Tension-type headache, unspecified, not intractable (principal); B34.9 Viral infection, unspecified; I25.10 Atherosclerotic heart disease of native coronary artery without angina pectoris; E10.9 Type 1 diabetes mellitus without complications; Z88.0 Allergy status to penicillin; Z79.51 Long term (current) use of inhaled steroids; Z79.01 Long term (current) use of anticoagulants; Z79.899 Other long term (current) drug therapy; Z79.4 Long term (current) use of insulin; Z79.82 Long term (current) use of aspirin; Z95.1 Presence of aortocoronary bypass graft
CPT/HCPCS: 0241U; 36415; 71045; 80053; 85025; 85610; 86140; 96374; 99284; 99284-25; A9270-GY; J2765; J3490

== ENCOUNTER 2024-04-07 12:04 | Emergency (ER) | payer MEDICAID ==
[2024-04-07 13:38] LABS: BASOPHILS PERCENT AUTO 0.2 % (0.0-1.0); EOSINOPHILS PERCENT AUTO 2.6 % (1.0-3.0); HEMATOCRIT 39.6 % (40.0-54.0); HEMOGLOBIN 13.3 g/dL (14.0-18.0); LYMPHOCYTES PERCENT AUTO 24.5 % (20.5-50.1); MEAN CORPUSCULAR HEMOGLOBIN 32.1 pg (27.0-34.0); MEAN CORPUSCULAR HGB CONC 33.6 g/dL (33.0-35.0); MEAN CORPUSCULAR VOLUME 95.7 fL (80-100); MONOCYTES PERCENT AUTO 7.8 % (2-8); NEUTROPHILS PERCENT AUTO 64.9 % (42.2-75.2); PLATELET COUNT,PLT 171 10^3/uL (150-450); RED BLOOD CELL COUNT 4.14 10^6/uL (4.6-6.2); WHITE BLOOD CELL COUNT,WBC 9.4 10^3/uL (5.0-10.0)
[2024-04-07 13:49] VITALS: BP 122/78; PULSE 77
[2024-04-07 13:51] LABS: INR 2.8 (0.9-1.2); PROTHROMBIN TIME 26.8 SEC (9.0-12.0)
[2024-04-07 13:58] LABS: A/G RATIO 1.2; ALANINE AMINOTRANSFERASE,ALT 34 U/L (16-63); ALBUMIN 4.4 g/dL (3.4-5.0); ALKALINE PHOSPHATASE 67 U/L (46-116); ANION GAP 20.7 mEq/L (7-13); ASPARTATE AMNIOTRANSFERASE,AST 21 U/L (15-37); BILIRUBIN TOTAL 0.6 mg/dL (0.2-1.0); BLOOD UREA NITROGEN,BUN 23 mg/dL (7-18); BUN/CREATININE RATIO 25.6 (No establ ref range); CALCIUM 9.6 mg/dL (8.5-10.1); CARBON DIOXIDE,CO2 16 mmol/L (21-32); CHLORIDE,CL 103 mmol/L (98-107); GLUCOSE RANDOM 103 mg/dL (70-99); MAGNESIUM 1.5 mg/dL (1.8-2.4); POTASSIUM,K 4.7 mmol/L (3.5-5.1); SODIUM,NA 135 mmol/L (136-145)
[2024-04-07 14:01] LABS: ESTIMATED GFR 102 mL/min (>=60); ETHANOL BLOOD MEDICAL < 3 mg/dL (0)
[2024-04-07] MEDS: Sodium Chloride 0.9% 500 ML IV ONE (15:07)
[2024-04-07] MEDS: Magnesium Sulfate/Water 2 GM in Premix Bag 1 BAG IV ONE (15:07)
[2024-04-07] MEDS: Acetaminophen 325 MG Tab PO ONE (15:08)
[2024-04-07 16:07] LABS: APPEARANCE,URINE CLEAR (CLEAR); BILIRUBIN,URINE NEGATIVE (NEGATIVE); COLOR,URINE YELLOW (YELLOW); GLUCOSE,URINE NEGATIVE (NEGATIVE); KETONES,URINE TRACE (NEGATIVE); LEUKOCYTE ESTERASE,URINE NEGATIVE (NEGATIVE); NITRITE,URINE NEGATIVE (NEGATIVE); OCCULT BLOOD,URINE NEGATIVE (NEGATIVE); PH,URINE 5.5 (5.0-9.0); PROTEIN,URINE NEGATIVE (NEGATIVE); UROBILINOGEN,URINE 0.2 mg/dL (0.2-1.0)
== END 2024-04-07 16:47 | disposition home or self-care (01) ==
LOC: DL.ED 12:04
DX: G44.201 Tension-type headache, unspecified, intractable (principal); E83.42 Hypomagnesemia; E86.9 Volume depletion, unspecified; I25.10 Atherosclerotic heart disease of native coronary artery without angina pectoris; E10.9 Type 1 diabetes mellitus without complications; Z79.899 Other long term (current) drug therapy; Z95.1 Presence of aortocoronary bypass graft; Z79.4 Long term (current) use of insulin; Z88.0 Allergy status to penicillin
CPT/HCPCS: 36415; 70450; 80053; 80307; 81003; 83735; 84484; 85025; 85610; 93005; 96365; 96366; 99284; A9270; J3475; J7030; 93010

== ENCOUNTER 2024-07-31 09:16 | Emergency (ER) | payer MEDICAID ==
[2024-07-31 09:31] VITALS: BP 126/76; PULSE 65
== END 2024-07-31 10:19 | disposition home or self-care (01) ==
LOC: DL.ED 09:16
DX: Z48.01 Encounter for change or removal of surgical wound dressing (principal); I25.10 Atherosclerotic heart disease of native coronary artery without angina pectoris; E10.9 Type 1 diabetes mellitus without complications; Z79.01 Long term (current) use of anticoagulants; Z79.4 Long term (current) use of insulin; Z79.899 Other long term (current) drug therapy; Z88.0 Allergy status to penicillin
CPT/HCPCS: 99282

== ENCOUNTER 2024-08-03 13:00 | Emergency (ER) | payer MEDICAID ==
[2024-08-03] MEDS ORDERED: Sodium Chloride 0.9% 10 ML Syringe FLUSH PRN (13:07)
[2024-08-03 13:18] LABS: BASOPHILS PERCENT AUTO 0.5 % (0.0-1.0); EOSINOPHILS PERCENT AUTO 2.5 % (1.0-3.0); HEMATOCRIT 35.6 % (40.0-54.0); HEMOGLOBIN 11.6 g/dL (14.0-18.0); LYMPHOCYTES PERCENT AUTO 19.1 % (20.5-50.1); MEAN CORPUSCULAR HEMOGLOBIN 32.3 pg (27.0-34.0); MEAN CORPUSCULAR HGB CONC 32.6 g/dL (33.0-35.0); MEAN CORPUSCULAR VOLUME 99.2 fL (80-100); MONOCYTES PERCENT AUTO 6.8 % (2-8); NEUTROPHILS PERCENT AUTO 71.1 % (42.2-75.2); PLATELET COUNT,PLT 191 10^3/uL (150-450); RED BLOOD CELL COUNT 3.59 10^6/uL (4.6-6.2)
[2024-08-03 13:25] VITALS: BP 121/77; PULSE 74
[2024-08-03 13:37] LABS: INR 1.6 (0.9-1.2); PROTHROMBIN TIME 16.4 SEC (9.0-12.0); PTT,PARTIAL THROMBOPLSTIN TIME 29.1 SEC (22.0-34.0)
[2024-08-03 13:41] LABS: A/G RATIO 1.2; ALANINE AMINOTRANSFERASE,ALT 67 U/L (16-63); ALBUMIN 3.9 g/dL (3.4-5.0); ALKALINE PHOSPHATASE 90 U/L (46-116); ANION GAP 16.2 mEq/L (7-13); ASPARTATE AMNIOTRANSFERASE,AST 32 U/L (15-37); BILIRUBIN TOTAL 0.5 mg/dL (0.2-1.0); BLOOD UREA NITROGEN,BUN 23 mg/dL (7-18); BUN/CREATININE RATIO 28.8 (No establ ref range); CALCIUM 9.3 mg/dL (8.5-10.1); CARBON DIOXIDE,CO2 22 mmol/L (21-32); CHLORIDE,CL 106 mmol/L (98-107); GLUCOSE RANDOM 107 mg/dL (70-99); MAGNESIUM 1.6 mg/dL (1.8-2.4); POTASSIUM,K 4.2 mmol/L (3.5-5.1); PROTEIN TOTAL,TP 7.1 g/dL (6.4-8.2); SODIUM,NA 140 mmol/L (136-145)
[2024-08-03 13:43] LABS: C-REACTIVE PROTEIN < 0.50 ng/dL (<=0.50); ESTIMATED GFR 105 mL/min (>=60)
[2024-08-03 13:44] LABS: LACTIC ACID 1.6 mmol/L (0.4-2.0)
[2024-08-03 14:00] LABS: B-TYPE NATRIURETIC PEPTIDE,BNP 40 pg/ml (0-100)
[2024-08-03] MEDS: GI Cocktail Oral Solution 30 ML PO ONE (14:39)
== END 2024-08-03 15:55 | disposition home or self-care (01) ==
LOC: DL.ED 13:00
DX: R07.89 Other chest pain (principal); K21.00 Gastro-esophageal reflux disease with esophagitis, without bleeding; I25.10 Atherosclerotic heart disease of native coronary artery without angina pectoris; E10.9 Type 1 diabetes mellitus without complications; Z95.1 Presence of aortocoronary bypass graft; Z79.899 Other long term (current) drug therapy; Z79.01 Long term (current) use of anticoagulants; Z79.82 Long term (current) use of aspirin; Z88.0 Allergy status to penicillin
CPT/HCPCS: 36415; 71045; 80053; 83605; 83735; 83880; 84145; 84484; 85025; 85610; 85730; 86140; 93005; 93010; 99284; 99285; A9270

== ENCOUNTER 2024-09-02 22:22 | Emergency (ER) | payer MEDICAID ==
[2024-09-02] MEDS ORDERED: Iopamidol 612 MG/ML 100 ML Bottle IVPUSH ONE (22:25)
[2024-09-02] MEDS: Ondansetron 4 MG/2 ML SDV IVPUSH ONE (22:33)
[2024-09-02] MEDS: Morphine 4 MG/ML Syringe IVPUSH ONE ×2 (22:33→23:20)
[2024-09-02] MEDS: Sodium Chloride 0.9% 1,000 ML IV ONE (22:34)
[2024-09-02 22:36] LABS: BASOPHILS PERCENT AUTO 0.2 % (0.0-1.0); EOSINOPHILS PERCENT AUTO 2.7 % (1.0-3.0); HEMATOCRIT 38.6 % (40.0-54.0); HEMOGLOBIN 12.6 g/dL (14.0-18.0); LYMPHOCYTES PERCENT AUTO 14.1 % (20.5-50.1); MEAN CORPUSCULAR HEMOGLOBIN 32.3 pg (27.0-34.0); MEAN CORPUSCULAR HGB CONC 32.6 g/dL (33.0-35.0); MONOCYTES PERCENT AUTO 8.4 % (2-8); NEUTROPHILS PERCENT AUTO 74.6 % (42.2-75.2); PLATELET COUNT,PLT 172 10^3/uL (150-450); WHITE BLOOD CELL COUNT,WBC 10.5 10^3/uL (5.0-10.0)
[2024-09-02 22:50] LABS: A/G RATIO 1.3; ALANINE AMINOTRANSFERASE,ALT 43 U/L (16-63); ALBUMIN 4.3 g/dL (3.4-5.0); ALKALINE PHOSPHATASE 132 U/L (46-116); ANION GAP 20.9 mEq/L (7-13); ASPARTATE AMNIOTRANSFERASE,AST 20 U/L (15-37); BILIRUBIN TOTAL 0.4 mg/dL (0.2-1.0); BLOOD UREA NITROGEN,BUN 22 mg/dL (7-18); BUN/CREATININE RATIO 23.9 (No establ ref range); CALCIUM 9.2 mg/dL (8.5-10.1); CARBON DIOXIDE,CO2 17 mmol/L (21-32); CHLORIDE,CL 108 mmol/L (98-107); CREATININE 0.92 mg/dL (0.70-1.30); GLUCOSE RANDOM 176 mg/dL (70-99); LIPASE 84 U/L (16-77); MAGNESIUM 1.8 mg/dL (1.8-2.4); POTASSIUM,K 4.9 mmol/L (3.5-5.1); PROTEIN TOTAL,TP 7.7 g/dL (6.4-8.2); SODIUM,NA 141 mmol/L (136-145)
[2024-09-02 22:51] LABS: ESTIMATED GFR 99 mL/min (>=60); ETHANOL BLOOD MEDICAL < 3 mg/dL (0)
[2024-09-02 22:55] LABS: LACTIC ACID 3.2 mmol/L (0.4-2.0)
[2024-09-02] MEDS: Iopamidol 755 Mg/ML 100 ML Bottle IVPUSH ONE (23:58)
[2024-09-03] MEDS: HYDROmorphone 0.5 MG/0.5 ML Syringe IVPUSH ONE (00:04)
[2024-09-03] MEDS: Sodium Chloride 0.9% 1,000 ML IV ONE (00:04)
[2024-09-03 00:41] LABS: APPEARANCE,URINE CLEAR (CLEAR); BILIRUBIN,URINE NEGATIVE (NEGATIVE); COLOR,URINE YELLOW (YELLOW); GLUCOSE,URINE NEGATIVE (NEGATIVE); KETONES,URINE NEGATIVE (NEGATIVE); LEUKOCYTE ESTERASE,URINE NEGATIVE (NEGATIVE); NITRITE,URINE NEGATIVE (NEGATIVE); OCCULT BLOOD,URINE NEGATIVE (NEGATIVE); PH,URINE 5.5 (5.0-9.0); PROTEIN,URINE NEGATIVE (NEGATIVE); UROBILINOGEN,URINE 0.2 mg/dL (0.2-1.0)
[2024-09-03 00:43] LABS: AMPHETAMINES,URINE NEGATIVE (NEGATIVE); BARBITURATES,URINE NEGATIVE (NEGATIVE); BENZODIAZEPINE,URINE NEGATIVE (NEGATIVE); MDMA (ECSTASY), URINE NEGATIVE (NEGATIVE); METHADONE,URINE NEGATIVE (NEGATIVE); METHAMPHETAMINES,URINE NEGATIVE (NEGATIVE); OPIATES,URINE POSITIVE (NEGATIVE); OXYCODONE,URINE NEGATIVE (NEGATIVE); PHENCYCLIDINE,URINE NEGATIVE (NEGATIVE); TCA,URINE NEGATIVE (NEGATIVE)
[2024-09-03 00:52] LABS: LACTIC ACID 1.4 mmol/L (0.4-2.0)
[2024-09-03 02:00] VITALS: BP 91/57; PULSE 74
[2024-09-03] MEDS ORDERED: Take Home: Ondansetron 4 MG Tab.DIS, 5 Tab Pack PO ONE (03:37)
[2024-09-06 13:47] LABS: QNTIFERON MITOGEN MIN NIL 9.99 IU/mL; QNTIFERON NIL 0.01 IU/mL; QNTIFERON PLUS TB2 MINUS NIL 0.02 IU/mL (<=0.34); QNTIFERON TB GOLD PLUS Negative (Negative)
== END 2024-09-03 04:15 | disposition home or self-care (01) ==
LOC: DL.ED 22:22
DX: K52.9 Noninfective gastroenteritis and colitis, unspecified (principal); R91.8 Other nonspecific abnormal finding of lung field; E10.9 Type 1 diabetes mellitus without complications; Z88.0 Allergy status to penicillin; Z79.82 Long term (current) use of aspirin; Z79.4 Long term (current) use of insulin; Z79.01 Long term (current) use of anticoagulants; Z79.899 Other long term (current) drug therapy
CPT/HCPCS: 36415; 71275; 74174; 80053; 80305; 80307; 81003; 83605; 83690; 83735; 84484; 85025; 86480; 93005; 96361; 96374; 96375; 96376; 99285; J1171; J2270; J2405; J7030; Q9967; 93010; 99284

== ENCOUNTER 2024-10-23 10:57 | Emergency (ER) | payer MEDICAID ==
[2024-10-23] MEDS: Iopamidol 612 MG/ML 100 ML Bottle IVPUSH ONE (11:12)
[2024-10-23 11:23] LABS: BASOPHILS PERCENT AUTO 0.1 % (0.0-1.0); EOSINOPHILS PERCENT AUTO 1.3 % (1.0-3.0); HEMATOCRIT 37.3 % (40.0-54.0); HEMOGLOBIN 12.3 g/dL (14.0-18.0); LYMPHOCYTES PERCENT AUTO 12.2 % (20.5-50.1); MEAN CORPUSCULAR HEMOGLOBIN 31.3 pg (27.0-34.0); MEAN CORPUSCULAR VOLUME 94.9 fL (80-100); MONOCYTES PERCENT AUTO 4.6 % (2-8); NEUTROPHILS PERCENT AUTO 81.8 % (42.2-75.2); PLATELET COUNT,PLT 130 10^3/uL (150-450); RED BLOOD CELL COUNT 3.93 10^6/uL (4.6-6.2); WHITE BLOOD CELL COUNT,WBC 7.9 10^3/uL (5.0-10.0)
[2024-10-23 11:27] LABS: APPEARANCE,URINE CLEAR (CLEAR); BILIRUBIN,URINE NEGATIVE (NEGATIVE); COLOR,URINE YELLOW (YELLOW); GLUCOSE,URINE NEGATIVE (NEGATIVE); KETONES,URINE 15 (NEGATIVE); LEUKOCYTE ESTERASE,URINE NEGATIVE (NEGATIVE); NITRITE,URINE NEGATIVE (NEGATIVE); OCCULT BLOOD,URINE TRACE-INTACT (NEGATIVE); PH,URINE 5.5 (5.0-9.0); PROTEIN,URINE NEGATIVE (NEGATIVE); UROBILINOGEN,URINE 0.2 mg/dL (0.2-1.0)
[2024-10-23 11:39] LABS: INR 3.7 (0.9-1.2); PROTHROMBIN TIME 35.6 SEC (9.0-12.0)
[2024-10-23 11:40] LABS: BACTERIA,URINE RARE /HPF (0-FEW/HPF); EPITHELIAL CELLS,URINE FEW /HPF (NOT SEEN); HYALINE CASTS,URINE FEW; RBC,URINE 0-5 /HPF (0-5); WBC,URINE 0-5 /HPF (0-5/HPF)
[2024-10-23 11:47] LABS: A/G RATIO 1.3; ANION GAP 14.3 mEq/L (7-13); BILIRUBIN TOTAL 0.7 mg/dL (0.2-1.0); BUN/CREATININE RATIO 16.3 (No establ ref range); CALCIUM 8.7 mg/dL (8.5-10.1); CREATININE 0.86 mg/dL (0.70-1.30); EST CRCL DRUG DOSING (CG) 89.46 mL/min; MAGNESIUM 1.6 mg/dL (1.8-2.4); POTASSIUM,K 4.3 mmol/L (3.5-5.1)
[2024-10-23] MEDS: Magnesium Sulfate/Water Premix 2 GM in Premix Bag 1 BAG IV ONE (11:56)
[2024-10-23] MEDS ORDERED: Acetaminophen 325 MG Tab PO ONE (13:09)
[2024-10-23 13:27] VITALS: BP 114/72; PULSE 75
== END 2024-10-23 13:20 | disposition home or self-care (01) ==
LOC: DL.ED 10:57
DX: U07.1 COVID-19 (principal); E83.42 Hypomagnesemia; K52.9 Noninfective gastroenteritis and colitis, unspecified; I25.10 Atherosclerotic heart disease of native coronary artery without angina pectoris; E10.9 Type 1 diabetes mellitus without complications; E86.0 Dehydration; Z88.0 Allergy status to penicillin; Z79.51 Long term (current) use of inhaled steroids; Z79.01 Long term (current) use of anticoagulants; Z79.82 Long term (current) use of aspirin; Z79.899 Other long term (current) drug therapy; Z95.1 Presence of aortocoronary bypass graft
CPT/HCPCS: 36415; 70450; 74177; 80053; 81001; 83690; 83735; 84484; 85025; 85610; 87428-QW; 96365; 96366; 99284-25; J3475; Q9967

== ENCOUNTER 2024-12-27 11:12 | Emergency (ER) | payer MEDICAID ==
[2024-12-27] MEDS: Lidocaine 2% 20 ML MDV ONE (11:30)
[2024-12-27 11:40] VITALS: BP 134/69; PULSE 80
== END 2024-12-27 11:40 | disposition home or self-care (01) ==
LOC: DL.ED 11:12
DX: G43.909 Migraine, unspecified, not intractable, without status migrainosus (principal); I25.10 Atherosclerotic heart disease of native coronary artery without angina pectoris; E10.9 Type 1 diabetes mellitus without complications; Z88.0 Allergy status to penicillin; Z79.899 Other long term (current) drug therapy; Z79.01 Long term (current) use of anticoagulants; Z79.82 Long term (current) use of aspirin; Z79.4 Long term (current) use of insulin
CPT/HCPCS: 64400; 99284; J2003; 99283

== ENCOUNTER 2025-08-15 10:14 | Emergency (ER) | payer MEDICAID ==
[2025-08-15 10:35] LABS: BASOPHILS PERCENT AUTO 0.2 % (0.0-1.0); EOSINOPHILS PERCENT AUTO 1.6 % (1.0-3.0); LYMPHOCYTES PERCENT AUTO 23.6 % (20.5-50.1); MONOCYTES PERCENT AUTO 9.3 % (2-8); NEUTROPHILS PERCENT AUTO 65.3 % (42.2-75.2); PLATELET COUNT,PLT 148 10^3/uL (150-450); RED BLOOD CELL COUNT 3.36 10^6/uL (4.6-6.2); WHITE BLOOD CELL COUNT,WBC 8.2 10^3/uL (5.0-10.0)
[2025-08-15 10:51] LABS: INR 2.0 (0.9-1.2)
[2025-08-15 10:58] LABS: A/G RATIO 1.2; ALANINE AMINOTRANSFERASE,ALT 23.0 U/L (16-63); ASPARTATE AMNIOTRANSFERASE,AST 11.0 U/L (15-37); BILIRUBIN TOTAL 0.4 mg/dL (0.2-1.0); BLOOD UREA NITROGEN,BUN 13.0 mg/dL (7-18); CARBON DIOXIDE,CO2 25.0 mmol/L (21-32); CHLORIDE,CL 107.0 mmol/L (98-107); CREATININE 0.79 mg/dL (0.70-1.30); EST CRCL DRUG DOSING (CG) 91.9 mL/min; GLUCOSE RANDOM 107.0 mg/dL (70-99); POTASSIUM,K 4.3 mmol/L (3.5-5.1); PROTEIN TOTAL,TP 6.9 g/dL (6.4-8.2); SODIUM,NA 141.0 mmol/L (136-145)
[2025-08-15 10:59] LABS: ESTIMATED GFR 105.0 mL/min (>=60)
[2025-08-15 11:38] LABS: B-TYPE NATRIURETIC PEPTIDE,BNP 110.0 pg/ml (0-100)
[2025-08-15 12:39] VITALS: BP 94/71; PULSE 61
== END 2025-08-15 11:50 | disposition home or self-care (01) ==
LOC: DL.ED 10:14
DX: J06.9 Acute upper respiratory infection, unspecified (principal); I25.10 Atherosclerotic heart disease of native coronary artery without angina pectoris; E10.9 Type 1 diabetes mellitus without complications; Z88.0 Allergy status to penicillin; Z79.01 Long term (current) use of anticoagulants; Z79.82 Long term (current) use of aspirin; Z79.899 Other long term (current) drug therapy; Z95.5 Presence of coronary angioplasty implant and graft
CPT/HCPCS: 36415; 71045; 80053; 83880; 84484; 85025; 85610; 93005; 93010; 99283; 99285

== ENCOUNTER 2025-08-17 12:44 | Emergency (ER) | payer MEDICAID ==
[2025-08-17 13:05] LABS: BASOPHILS PERCENT AUTO 0.3 % (0.0-1.0); EOSINOPHILS PERCENT AUTO 2.9 % (1.0-3.0); LYMPHOCYTES PERCENT AUTO 38.5 % (20.5-50.1); MONOCYTES PERCENT AUTO 10.0 % (2-8); NEUTROPHILS PERCENT AUTO 48.3 % (42.2-75.2); PLATELET COUNT,PLT 160 10^3/uL (150-450); RED BLOOD CELL COUNT 3.58 10^6/uL (4.6-6.2); WHITE BLOOD CELL COUNT,WBC 7.0 10^3/uL (5.0-10.0)
[2025-08-17 13:20] LABS: A/G RATIO 1.1; ALANINE AMINOTRANSFERASE,ALT 41.0 U/L (16-63); ASPARTATE AMNIOTRANSFERASE,AST 33.0 U/L (15-37); BILIRUBIN TOTAL 0.5 mg/dL (0.2-1.0); BLOOD UREA NITROGEN,BUN 17.0 mg/dL (7-18); CARBON DIOXIDE,CO2 25.0 mmol/L (21-32); CHLORIDE,CL 105.0 mmol/L (98-107); CREATININE 0.97 mg/dL (0.70-1.30); EST CRCL DRUG DOSING (CG) 73.63 mL/min; GLUCOSE RANDOM 85.0 mg/dL (70-99); POTASSIUM,K 4.4 mmol/L (3.5-5.1); PROTEIN TOTAL,TP 7.3 g/dL (6.4-8.2); SODIUM,NA 138.0 mmol/L (136-145)
[2025-08-17 13:21] LABS: ESTIMATED GFR 92.0 mL/min (>=60)
[2025-08-17 13:25] LABS: B-TYPE NATRIURETIC PEPTIDE,BNP 94.0 pg/ml (0-100)
[2025-08-17 13:34] LABS: INR 1.9 (0.9-1.2); PTT,PARTIAL THROMBOPLSTIN TIME 34.1 SEC (22.0-34.0)
[2025-08-17] MEDS: fentaNYL 100 MCG/2 ML SDV IVPUSH ONE ×2 (14:24→15:53)
[2025-08-17 16:24] VITALS: BP 125/64; PULSE 70
== END 2025-08-17 16:01 ==
LOC: DL.ED 12:44
DX: I24.9 Acute ischemic heart disease, unspecified (principal); I25.110 Atherosclerotic heart disease of native coronary artery with unstable angina pectoris; E10.9 Type 1 diabetes mellitus without complications; I11.0 Hypertensive heart disease with heart failure; I50.9 Heart failure, unspecified; I25.10 Atherosclerotic heart disease of native coronary artery without angina pectoris; Z95.1 Presence of aortocoronary bypass graft; Z88.0 Allergy status to penicillin; Z79.01 Long term (current) use of anticoagulants; Z79.82 Long term (current) use of aspirin; Z79.899 Other long term (current) drug therapy; Z95.5 Presence of coronary angioplasty implant and graft; Z79.4 Long term (current) use of insulin
CPT/HCPCS: 36415; 71045; 80053; 83735; 83880; 84484; 85025; 85610; 85730; 93005; 96365; 96366; 96375; 96376; 99285; J2305; J3010; 93010